=== PATIENT | female | born 1940 | race Caucasian/White ===

== ENCOUNTER 2018-08-11 11:25 | Inpatient (IN) | payer MEDICARE, SELFPAY ==
[2018-08-11] VITALS (15 sets, daily range): BP systolic 141–181; BP diastolic 71–90; PULSE 62–76; RESP 9–19; TEMP 36.5–37.4; O2SAT 88–99; BMI 26.2
--- NOTE | 2018-08-11 | DI.RAD.S_ITS ---
PROCEDURE: XR HIP W PEL IF DONE RT 2V INDICATIONS: RIGHT HIP ORIF TECHNIQUE: 2 views of the hip were acquired. COMPARISON: [facility], CR, XR HIP W PEL IF DONE RT 2V, 08/11/2018, 11:35. FINDINGS: Two intraoperative fluoroscopy images demonstrate open reduction and internal fixation of right femoral neck fracture. 3 surgical screws are noted traversing the femoral neck. IMPRESSION: Open reduction and internal fixation of right femoral neck fracture. Dictated by: Sharon Mohamud M.D. on 08/11/2018 at 21:24 Approved by: Sharon Mohamud M.D. on 08/11/2018 at 21:25
--- NOTE | 2018-08-11 11:33 | DI.RAD.S_ITS ---
PROCEDURE: XR HIP W PEL IF DONE RT 2V INDICATIONS: fall with hip pain TECHNIQUE: 2 views of the hip were acquired. COMPARISON: None. FINDINGS: Bones: There is a mildly impacted subcapital/femoral neck fracture involving the right proximal femur without significant displacement. There is no dislocation. No additional fractures are seen. The bone mineralization is within normal limits. Mild to moderate degenerative changes of the pelvic joints are noted, including the lower lumbar spine. Soft tissues: No suspicious soft tissue calcifications or masses. Scattered vascular calcifications are present. IMPRESSION: Nondisplaced subcapital/femoral neck fracture of the proximal right femur. Dictated by: Homar Chavira M.D. on 08/11/2018 at 10:58 Approved by: Homar Chavira M.D. on 08/11/2018 at 10:59
[2018-08-11] MEDS: TET,DIPH,PERTUSS(ACELL),VAC/PF 0.5 ML SYRINGE IM (11:56)
--- NOTE | 2018-08-11 12:11 | ED_ITS ---
HPI - Animal Bite General Chief Complaint: Animal Bite Stated Complaint: RT LEG PAIN FROM FALL, DOG BITE Time Seen by Provider: 08/11/18 11:28 Source: patient Mode of arrival: ambulatory Limitations: no limitations History of Present Illness HPI narrative: 78-year-old pleasantly confused female presents with significant other in the chief complaint of a provoked dog bite to her left thigh and fall onto her right hip resulting in significant pain, particularly with range of motion or ambulation. She denies any head neck injury. She denies any chest pain or shortness of breath. She denies any dizziness, weakness or lightheadedness. Her tetanus is not current. She states it was her dog and jumped up and nipped at her leg when it was abruptly a woken from sleep when she thinks she tripped on it. She last ate 1-2 hours prior to her arrival, a spoonful of peanut butter. Her dog has been fully vaccinated complaint: animal bite Onset (ago): hour(s) Animal: dog Mechanism: bite Left: thigh Pain description: sharp Context: provoked Related Data Patient tetanus UTD: No Home Medications Medication Instructions Recorded Confirmed No Known Home Medications 08/11/18 08/11/18 Allergies Allergy/AdvReac Type Severity Reaction Status Date / Time No Known Drug Allergies Allergy Verified 08/11/18 12:11 Review of Systems Review of Systems All systems reviewed & are unremarkable except as noted in HPI and below Constitutional Denies chills, Denies fever(s), Denies lethargy and Denies weakness Eyes Denies change in vision, Denies eye discharge, Denies irritation and Denies loss of vision ENT Ears, Nose, Mouth, and Throat: Denies change in voice, Denies neck pain and Denies sore throat Cardiovascular Denies chest pain, Denies irregular heart rhythm, Denies lightheadedness, Denies palpitations, Denies dyspnea, Denies dyspnea on exertion and Denies orthopnea Respiratory Denies cough, Denies dyspnea, Denies dyspnea on exertion and Denies wheezing Gastrointestinal Gastrointestinal: Denies abdominal pain, Denies change in bowel habits, Denies diarrhea, Denies nausea and Denies vomiting Genitourinary Denies hematuria, Denies flank pain, Denies urinary incontinence and Denies urinary urgency Musculoskeletal Reports limited range of motion and Denies neck pain Integumentary/Breasts Denies pruritus, Denies erythema, Denies rash and Denies wounds Neurologic Denies confusion, Denies loss of vision and Denies weakness Psychiatric Denies anxiety, Denies confusion, Denies depression, Denies homicidal ideation and Denies suicidal ideation Endocrine Denies palpitations Hematologic/Lymphatic Denies easy bruising Allergic/Immunologic Denies wheezing Exam Narrative Exam Narrative: 78-year-old female, pleasantly confused but obviously uncomfortable, complaining of right hip pain Initial Vital Signs Initial Vital Signs: Vital Signs Temperature 98.0 F 08/11/18 11:40 Pulse Rate 66 08/11/18 11:40 Respiratory Rate 18 08/11/18 11:40 Blood Pressure 168/73 H 08/11/18 11:40 Pulse Oximetry 94 08/11/18 11:40 Const General: cooperative, well developed and acute distress Nutritional Appearance: well nourished Orientation: alert, awake, oriented x3 and confused HENMT Head: normocephalic and atraumatic Ears: external ears normal and TM's normal bilaterally Nose: external nose normal and No nasal discharge Face and sinus: sinuses nontender, face symmetric, no sinus tenderness and No dry mucous membranes Mouth: oral mucosae normal and moist mucous membranes Teeth and gingiva: dentition normal Throat: tonsils normal and uvula midline Eyes General: appearance normal, both eyes and all related structures Eyelids: eyelids normal Conjunctivae: conjunctivae normal Sclera: sclerae normal Pupils: PERRL EOM: EOM intact bilaterally Chest Chest: normal inspection of the chest Cardio Rate: regular rate Rhythm: regular rhythm Heart Sounds: no click, no gallops, no murmurs and no rubs Pulses: normal peripheral pulses Back/Spine/Pelvis Back: No CVA tenderness Cervical Spine: cervical ROM normal and No pain with cervical ROM Thoracic/Lumbar Spine: thoracic and lumbar spine normal to inspection Skin General: no rashes or lesions noted, No jaundice and No petechiae Neuro General: alert, oriented x3, gait normal and no focal motor deficits Speech: speech normal Extrem General: full ROM, no clubbing, cyanosis or edema, no pedal edema and no calf tenderness Right lower extremity: hip/thigh (Pain to palpation, nor shortening or external rotation. Cap refill less than 2 sec, sensation intact) Course Orders Ordered: ED Orders 08/11/18 11:33 XR hip w pel if done RT 2V Stat 08/11/18 12:35 Basic Metabolic Panel Stat Complete Blood Count AUTO DIFF Stat 08/11/18 12:47 Education, smoking cessation ONGOING 08/11/18 12:51 Consult to Discharge Planning Routine Consult to Occupational Therapy Evaluate & Treat Consult to Physical Therapy Evaluate & Treat Consult to Free Lance Model Routine Al Hydrox/Mg Hydrox/Simethicone (Maalox Plus) 30 ml PO Q6HR PRN PRN Reason: Dyspepsia Calcium Carbonate (Tums) 1,000 mg PO Q4HR PRN PRN Reason: Dyspepsia Hydromorphone HCl (Dilaudid) 1 mg IV Q6HR PRN PRN Reason: Pain, Severe (7-10) Last Admin: 08/11/18 13:04 Dose: 1 mg Sodium Chloride (Normal Saline 0.9%) 1,000 mls @ 80 mls/hr IV CONT TRICIA Last Infusion: 08/11/18 13:40 Dose: 80 mls/hr Admin: 08/11/18 13:05 Dose: 80 mls/hr Ondansetron HCl (Zofran) 4 mg IV Q8HR PRN PRN Reason: Nausea And Vomiting Last Admin: 08/11/18 13:04 Dose: 4 mg Oxycodone HCl (Percolone) 5 mg PO Q6HR PRN PRN Reason: Pain, Moderate (4-6) Promethazine HCl (Phenadoz) 12.5 mg MA Q6HR PRN PRN Reason: Nausea And Vomiting Discontinued Medications Diphtheria/Tetanus/Acell Pertussis (Adacel) 0.5 ml IM .ONCE ONE Stop: 08/11/18 11:34 Last Admin: 08/11/18 11:56 Dose: 0.5 ml Consultations Consultation #1: Initial call to Orthopedics who recommend admission to the hospitalist and will coordinate with hospitalist regarding likely surgery Consultation #2: Hospitalist happy to accept this patient Vital Signs - 8 hr 08/11/18 11:40 08/11/18 13:05 08/11/18 13:21 Temperature 98.0 F Pulse Rate 66 68 76 Respiratory Rate 18 16 12 Blood Pressure 168/73 H Blood Pressure [Left Arm] 181/71 H 181/71 H Pulse Oximetry 94 94 88 L MDM - Animal Bite Lab Data Result diagrams: 08/11/18 12:35 08/11/18 12:35 Lab Results 08/11/18 08/11/18 Range/Units 12:35 12:35 WBC 15.0 H (4.5-11.0) X10^3/uL RBC 5.34 H (4.0-5.2) X10^6/uL Hgb 15.5 (12.0-16.0) g/dL Hct 46.8 H (36-46) % MCV 87.6 (80-100) fL MCH 29.1 (26-34) PG MCHC 33.2 (30-36) % RDW 14.1 (11.6-14.8) % Plt Count 250 (150-400) X10^3/uL Neut % (Auto) 85.6 H (50-75) % Lymph % (Auto) 7.2 L (25-40) % [place] % (Auto) 6.2 (3-14) % Eos % (Auto) 0.5 L (2-4) % Baso % (Auto) 0.5 (0-2) % Neut # (Auto) 29718 H (0846-0174) /uL Sodium 143 (137-145) mmol/L Potassium 4.8 (3.4-5.1) mmol/L Chloride 99 (98-107) mmol/L Carbon Dioxide 32 (22-32) mmol/L BUN 19 H (7-17) mg/dL Creatinine 0.70 (0.52-1.04) mg/dL Estimated GFR > 60.0 (>60) mL/min BUN/Creatinine Ratio 27.1 H (6-22) Glucose 111 H (80-110) mg/dL Calcium 10.8 H (8.4-10.2) mg/dL Phosphorus 3.3 (2.8-4.1) mg/dL Magnesium 1.8 (1.6-2.3) mg/dL Discharge Plan Departure Patient Disposition: Admitted As Inpatient Clinical Impression: Closed hip fracture Discharge Date/Time: 08/11/18 13:33 Interventions: ED Discharge Assessment Last Done: 08/11/18 13:32 Admit Date/Time: 08/11/18 12:33 Admit Provider: Brenda Caruso
[2018-08-11 12:43] LABS: Add Manual Diff / Slide Review NO; Basophils Percent Auto 0.5 % (0-2); Eosinophils Percent Auto 0.5 % (2-4); Hematocrit 46.8 % (36-46); Hemoglobin 15.5 g/dL (12.0-16.0); Lymphocytes Percent Auto 7.2 % (25-40); Mean Corpuscular HGB Conc 33.2 % (30-36); Mean Corpuscular Hemoglobin 29.1 PG (26-34); Mean Corpuscular Volume 87.6 fL (80-100); Monocytes Percent Auto 6.2 % (3-14); Neutrophils Absolute Auto 12800 /uL (3000-5900); Neutrophils Percent Auto 85.6 % (50-75); Platelet Count 250 X10^3/uL (150-400); Red Blood Cell Count 5.34 X10^6/uL (4.0-5.2); Red Cell Distribution Width 14.1 % (11.6-14.8)
[2018-08-11 13:01] LABS: BUN Creatinine Ratio 27.1 (6-22); Blood Urea Nitrogen 19 mg/dL (7-17); Calcium 10.8 mg/dL (8.4-10.2); Carbon Dioxide 32 mmol/L (22-32); Chloride 99 mmol/L (98-107); Estimated Glomerular Filt Rate > 60.0 mL/min (>60); Glucose 111 mg/dL (80-110); HEMOLYSIS < 15 (0-50); Potassium 4.8 mmol/L (3.4-5.1); Sodium 143 mmol/L (137-145)
[2018-08-11] MEDS: HYDROMORPHONE 1 MG INJ IV (13:04)
[2018-08-11] MEDS: ONDANSETRON 4 MG/2 ML INJ IV (13:04)
[2018-08-11] MEDS: SODIUM CHLORIDE 0.9% 1,000 ML 80 ML IV ×2 (13:05→17:22)
[2018-08-11 13:18] LABS: Magnesium 1.8 mg/dL (1.6-2.3); Phosphorous 3.3 mg/dL (2.8-4.1)
--- NOTE | 2018-08-11 13:39 | PT.IPTN ---
Surgery Performed Operation Date: 08/11/18 16:00 <No data on this case meets the specified criteria> Physical Therapy Treatment Note M3 PT-IP Subjective Start: 08/11/18 13:29 Freq: NEEDED Status: Active Protocol: Document 08/11/18 13:38 RS (Rec: 08/11/18 13:39 RS [id number]) Subjective Physical Therapy Visit Type Type Administrative Note Notes Pt just arrived to acute floor from ED with R hip fx. Pt is awaiting ortho consult. Will hold PT until a plan is made.
--- NOTE | 2018-08-11 15:35 | P.CONS_ITS ---
History of Present Illness Date Patient Seen: 08/11/18 Time Patient Seen: 15:25 Chief complaint: RT LEG PAIN FROM FALL, DOG BITE Reason for consult: Right hip pain Requesting provider: Geraldo Mejia Narrative: Patient is a 78-year-old woman who was interacting with the dog when the dog bit her. Somehow during this tarsal she fell and injured her right hip. She was unable to walk well afterwards and was seen in the emergency room at [facility] where radiographs revealed an impacted minimally displaced femoral neck fracture. Orthopedic consultation has been obtained for definitive management of the fracture. Meds Home Medications Medication Instructions Recorded Confirmed Type No Known Home Medications 08/11/18 08/11/18 History Allergies Allergy/AdvReac Type Severity Reaction Status Date / Time No Known Drug Allergies Allergy Verified 08/11/18 12:11 Review of Systems Review of Systems All systems reviewed & are unremarkable except as noted in HPI and below Exam Vital Signs (past 8 hours): - 08/11/18 11:40 08/11/18 13:05 08/11/18 13:15 Temperature 98.0 F 98.5 F Pulse Rate 66 68 76 Respiratory Rate 18 16 18 Blood Pressure 168/73 H 176/90 H Blood Pressure [Left Arm] 181/71 H Pulse Oximetry 94 94 98 08/11/18 13:21 Temperature Pulse Rate 76 Respiratory Rate 12 Blood Pressure Blood Pressure [Left Arm] 181/71 H Pulse Oximetry 88 L Oxygen Delivery Method Nasal Cannula Oxygen Flow Rate 2 Narrative Exam Narrative: Patient is lying comfortably in bed as long she does not move. The right hip is held in a slightly flexed position. It is tender over the greater trochanter. There is no ecchymosis there is no break in the skin. She has a soft calf. Light touch and motion are intact in the right lower extremity. Objective Labs Result Diagrams: 08/11/18 12:35 08/11/18 12:35 Labs: Laboratory Results - last 24 hr 08/11/18 08/11/18 12:35 12:35 WBC 15.0 H RBC 5.34 H Hgb 15.5 Hct 46.8 H MCV 87.6 MCH 29.1 MCHC 33.2 RDW 14.1 Plt Count 250 Neut % (Auto) 85.6 H Lymph % (Auto) 7.2 L Brule % (Auto) 6.2 Eos % (Auto) 0.5 L Baso % (Auto) 0.5 Neut # (Auto) 23833 H Sodium 143 Potassium 4.8 Chloride 99 Carbon Dioxide 32 BUN 19 H Creatinine 0.70 Estimated GFR > 60.0 BUN/Creatinine Ratio 27.1 H Glucose 111 H Calcium 10.8 H Phosphorus 3.3 Magnesium 1.8 Radiographs: Radiographs were reviewed. There is an impacted femoral neck fracture of the right femur. Assessment & Plan Plan: Assessment/Plan Narrative: The patient is a relatively healthy 78-year-old woman. She has a remarkably poor historian however. She has a great deal of difficulty recalling when she last ate and recalls her last meal is anything from a couple of tsp of peanut butter to half a Vianey Callendars pot pie. We have arranged for her to undergo percutaneous fixation of her hip fracture however the surgery will be delayed significantly due to the uncertainty regarding when she last ate. This likely will occur now at 7:30 a.m. this evening. She has agreed to surgery after discussion of the risks benefits and alternatives. Risks discussed included but were not limited to: Loss of fixation of the fracture, potential need for later conversion to hemiarthroplasty, infection, nerve damage, deep venous thrombosis, pulmonary embolism, stroke, myocardial infarction, permanent paralysis and . Time Spent With Patient Time with patient: 25 - 35 minutes
--- NOTE | 2018-08-11 15:49 | PC.NURSE ---
Patient arrived to room just before 1400, oriented to room and call light. Gardner in place, draining clear yellow urine. Right hip intact with ice bag in place. Patient states her pain is minimal at this time. Left leg has 4 spots of dried blood, WILIAM, dry and patient states this is where the dog bit her. Dry skin throughout noted which patient reports is chronic condition. Patient denies needs at this time. Call light within reach. Awaiting plan of care.
--- NOTE | 2018-08-11 15:56 | PC.NURSE ---
Patient noted to be 98% on 1.5 L not 88% as previously documented.
[2018-08-11] MEDS: LACTATED RINGERS 1,000 ML 42 ML IV (16:28)
--- NOTE | 2018-08-11 16:37 | P.HP_ITS ---
History of Present Illness Date Patient Seen: 08/11/18 Time Patient Seen: 16:23 Chief complaint: RT LEG PAIN FROM FALL, DOG BITE Narrative: - PATIENT WITH APPARENTLY NO SIGNIFICANT MEDICAL HX AND WITH MILD TO MODERATE DEMENTIA - PATIENT PRESENTED TO THE ED AFTER A FALL TODAY - SHE STATED THAT SOMEONE S DOG BIT HER AND WHILE TRYING TO GET AWAY, SHE FELL - SHE DENIED ANY LOSS OF CONSCIOUSNESS - SHE WAS IN HER USUAL STATE OF HEALTH PRIOR TO THAT - IN THE ED, SHE WAS DX WITH AN ACUTE RT HIP FRACTURE AND REFERRED TO ORTHO AND ADMITTED INTO OUR SERVICES - SHE HAD NO OTHER COMPLAINTS AT THIS TIME EXCEPT FOR PAIN WITH ACTIVE AND PASSIVE MOVEMENT OF THE RT LOWER EXT Patient History Medical History Dementia (Acute) Surgical History Hx laparoscopic cholecystectomy (Acute) Family & Social History Family History: Reviewed 08/11/18 by Brenda Caruso DO Social History: household members children Prior Living Arrangements House Safety & Behavioral: Feels Safe in Current Yes Environment Been Physically Hurt or No Threatened By a Person Suicidal Ideation Description None Suicide Plan Description No Plan Tobacco & Substance use: Smoking Status Former smoker alcohol intake frequency holiday/special occasion Substance Use Type does not use Meds Home Medications Medication Instructions Recorded Confirmed Type No Known Home Medications 08/11/18 08/11/18 History Allergies Allergy/AdvReac Type Severity Reaction Status Date / Time No Known Drug Allergies Allergy Verified 08/11/18 12:11 Review of Systems Review of Systems All systems reviewed & are unremarkable except as noted in HPI and below Exam Vital Signs (past 8 hours): - 08/11/18 11:40 08/11/18 13:05 08/11/18 13:15 Temperature 98.0 F 98.5 F Pulse Rate 66 68 76 Respiratory Rate 18 16 18 Blood Pressure 168/73 H 176/90 H Blood Pressure [Left Arm] 181/71 H Pulse Oximetry 94 94 98 08/11/18 13:21 08/11/18 13:50 Temperature Pulse Rate 76 Respiratory Rate 12 Blood Pressure Blood Pressure [Left Arm] 181/71 H Pulse Oximetry 88 L 98 Oxygen Delivery Method Nasal Cannula Oxygen Flow Rate 1.5 Narrative Exam Narrative: NO ACUTE DISTRESS. PATIENT IS ALERT ORIENTED X 2. VITAL SIGNS STABLE HEAD ATRAUMATIC NORMOCEPHALIC NECK : SUPPLE WITHOUT ADENOPATHY NO CAROTID BRUITS EYE: EOMI, PERRLA, NORMAL CONJUNCTIVA; NO JAUNDICE CHEST: REGULAR RATE. NO RUBS. PMI IS NON DISPLACED. NO MURMURS; NORMAL S1- S2 PULMONARY: DECREASED BS OVER THE BASES. MILD BIBASILAR CRACKLES NOTED; NO INCREASED DULLNESS TO PERCUSSION ABDOMEN: SOFT. NON TENDER. NON DISTENDED. BOWEL SOUNDS ARE PRESENT IN ALL 4 QUADRANTS. NO MASS. EXTREMITIES: NO EDEMA.. NO CYANOSIS CLUBBING NOTED. NEURO: CRANIAL NERVES 2-12 GROSSLY INTACT. NO FOCAL NEUROLOGICAL DEFICIT NOTED. MSK: DISCOMFORT WITH ACTIVE AND PASSIVE ROM ON THE RT LOWER EXT; NO JOINT EFFUSION. SKIN: NORMAL FOR ETHNICITY; NO ECCHYMOSIS. NO LESION. GOOD TURGOR.; NO RASHES : NORMAL EXTERNAL GENITALIA. PSYCH : APPROPRIATE MOOD AND AFFECT. ALERT AWAKE ORIENTED X3 Objective Labs Result Diagrams: 08/11/18 12:35 08/11/18 12:35 Labs: Laboratory Results - last 24 hr 08/11/18 08/11/18 12:35 12:35 WBC 15.0 H RBC 5.34 H Hgb 15.5 Hct 46.8 H MCV 87.6 MCH 29.1 MCHC 33.2 RDW 14.1 Plt Count 250 Neut % (Auto) 85.6 H Lymph % (Auto) 7.2 L [place] % (Auto) 6.2 Eos % (Auto) 0.5 L Baso % (Auto) 0.5 Neut # (Auto) 82216 H Sodium 143 Potassium 4.8 Chloride 99 Carbon Dioxide 32 BUN 19 H Creatinine 0.70 Estimated GFR > 60.0 BUN/Creatinine Ratio 27.1 H Glucose 111 H Calcium 10.8 H Phosphorus 3.3 Magnesium 1.8 Assessment & Plan Plan: Assessment/Plan Narrative: IMPRESSION AND PLAN ACUTE FALL WITH TRAUMA; ACCIDENTAL; GROUND LEVEL ; FALL PRECAUTIONS; PT/OT RT HIP FX; SPOKE TO ORTHO; POSS SURG THIS PM ; PATIENT IS CLEARED FOR PROCEDURE IN MEDICINE STAND POINT; FOLLOW CLOSELY POSTOP FOR S/S OF ACUTE COMPLAICATIONS LEUKOCYTOSIS; LIKELY ACUTE REACTANT; WILL GET UA HOWEVER; REPEAT LABS IN AM; ABX INDICATED POSS MILD DEHYDRATION; IVF FOR NOW; TREAT INDICATED DEMENTIA; APPEARS AT BASELINE; RE-ORIENT INDICATED; KEEP LIGHTS ON AT ALL TIMES; WATCH FOR HOSPITAL PSYCHOSIS; PRN MEDS INDICATED POSS OSTEOPOROSIS ; VIT D AND CA WHILE IN HOUSE; BONE SCAN AND OTHER MEDS OUTPT WHEN INDICATED DURATION OF STAY 2-4 DAYS Time Spent With Patient Time with patient: Greater than 35 minutes Quality VTE Deep Vein Thrombosis/Pulmonary Embolism Present on Admission: No
[2018-08-11 17:48] LABS: Appearance Urine UA CLEAR; Bilirubin Urine UA NEGATIVE (NEGATIVE); Color Urine UA YELLOW; Glucose Urine UA NEGATIVE (Normal); Ketones Urine UA NEGATIVE (NEGATIVE); Leukocyte Esterase Urine UA NEGATIVE (NEGATIVE); Nitrite Urine UA NEGATIVE (Negative); Occult Blood Urine UA TRACE-INTACT (Negative); Protein Urine UA NEGATIVE (Negative); Specific Gravity Urine UA 1.025 (1.000-1.035); Urobilinogen Urine UA 0.2 E.U./dL (0.2); pH Urine UA 5.5 (4.5-8.0)
[2018-08-11 17:58] LABS: Amorphous Sediment Urine 1+; Bacteria Urine Occasional (0-1); Mucus Urine 1+ (Negative); RBC Urine 0-1/HPF (0-5/HPF); Squamous Epithelial Cell Urine 0-1 /HPF; WBC Urine 0-1/HPF (0-5/HPF)
[2018-08-11 17:59] LABS: Culture Indicated Urine Cult Not Indicated
--- NOTE | 2018-08-11 19:08 | PC.NURSE ---
Addendum entered by Adrianna Hennessy R.N. 08/11/18 21:59: 2150 - Patient returned from PACU with nursing staff. Alert and oriented. Dressing to right hip C/D/I. Bed alarm on, call light within reach. Original Note: 1904 - Patient taken to Preop by surgical nurses. Left floor in good condition.
[2018-08-11] MEDS: CEFAZOLIN 1 GM/50 ML FROZ.PIGGY IV (20:10)
--- NOTE | 2018-08-11 20:35 | SUR.OPER ---
Head on pillow. Supine on fracture table with operative leg secured in traction. Other leg secured in padded stirrup. Arms across chest, secured with sheet.
--- NOTE | 2018-08-11 21:15 | PM.OP.1 ---
Operative Date/Time/Diagnoses Date of procedure: 08/11/18 Time of procedure: 21:00 Pre-op diagnosis: Impacted right femoral neck fracture. Post-op diagnosis: same Procedure & Clinicians Procedure: Right hip percutaneous screw fixation Same procedure as scheduled: Yes Indications: The patient is a 78-year-old woman who fell today sustaining an impacted fracture of her right femoral neck. This appeared to be amenable to percutaneous treatment with screws and after discussion the risks benefits and alternative she agreed to proceed. The risks discussed are documented in my consultation note. Surgeon: Arun Melchor Click Yes if Unassisted: Yes Anesthesia Type: General Operative Notes Findings: Impacted femoral neck fracture Closure Type: primary Specimen(s): none sent Implants & Drains: Implants included 3 Synthes 7.3 mm short thread cancellous bone screws. Two were 75 mm in length 1 was 70 mm in length. Two screws were used but not left implanted. Applied: catheter and implant(s) Estimated Blood Loss (mL): 5 Blood products transfused: none Procedure in detail: The patient was seen in the preoperative area where she confirmed the right hip as the operative site and this was marked with my initials. She received preoperative antibiotics with an appropriate 1st generation cephalosporin and was taken to the operating room on her hospital bed. She underwent induction of a general anesthetic and then was moved onto the fracture table. The right leg was placed in the traction leg silvestre although no traction was applied. The left leg was placed in the well leg silvestre and abducted out of the way of the fluoroscopy unit. All pressure points were well padded. The position of the fracture was confirmed on the AP and lateral views with fluoroscopy. A livestock speculator-out was performed. The lateral aspect of the right thigh was prepared with ChloraPrep in the usual fashion and she was draped with a vertical adherent drape. The axis of the femoral neck was marked on her anterior thigh using a guide pin and the fluoroscopy to show the top and bottom of the femoral neck. Three guide pins were then placed in parallel on the AP and lateral views across the femoral neck fracture with 2 being superior and 1 inferior. These were measured and 5 mm subtracted from their length to prevent penetration into the joint. At initially I placed a long threaded cancellous screw but it was evident that this had the threads crossing the fracture line so this was removed and all 3 of the screws that were implanted were then short-threaded screws. After implanting the screws over the wires I viewed the position of the screw tips in 15 degree increments from the AP to the lateral view. It became evident that the inferior screw penetrated the femoral head on 1 of the oblique views. This screw was then removed and a guidewire replaced slightly superior to avoid penetration of the inferior femoral head. When I remeasured this screw it needed to be 5 mm longer so a new screw was placed. We then repeated the exercise of checking the screw tips in 15 degree increments and saw that none of them were penetrating the femoral head. The wounds were then closed with 4 0 Maxon and Steri-Strips. A dressing of sterile 4x4s and adhesive dressings were applied. Patient was then transferred to the recovery room in good condition having tolerated the procedure well. Complications: none Condition: stable Disposition: PACU Plan for aftercare: The patient will be allowed to weightbear as tolerated. She will be discharged when she is stable for her home environment. It is possible she may require transfer to a longterm facility depending on her progress with physical therapy.
[2018-08-11] MEDS: ALBUTEROL 2.5 MG/3 ML NEB (ADULT) INH (21:19)
[2018-08-11] MEDS: fentaNYL 100 MCG/2 ML INJ 50 MCG IV (21:26)
--- NOTE | 2018-08-11 21:28 | SUR.PHASEI ---
Pt declined to rate pain by pain scale. Reported pain in her rt hip. Ice applied. Pt medicatedl
--- NOTE | 2018-08-11 21:43 | SUR.PHASEI ---
Report called to Manisha
--- NOTE | 2018-08-11 22:10 | SUR.PHASEI ---
Pt transferred to the floor on 2L O2. Report to Manisha. RT hip drsg cdi. IV patent. VS stable. O2 sat 80s on RA. 7% 2lnc.
[2018-08-11] MEDS: LACTATED RINGERS 1,000 ML 125 ML IV (22:19)
[2018-08-11] MEDS: OXYCODONE IR 5 MG TABLET PO (22:20)
[2018-08-12] VITALS (13 sets, daily range): BP systolic 127–166; BP diastolic 58–90; PULSE 64–98; RESP 16–18; TEMP 36.5–37.2; O2SAT 90–98
--- NOTE | 2018-08-12 | DI.CT.S_ITS ---
PROCEDURE: CT CHEST WO CON INDICATIONS: poss pulm mass vs nodule on cxr; TECHNIQUE: Noncontrast 5 mm thick sections acquired from the pulmonary apices to the posterior costophrenic angles. 7 mm thick coronal and sagittal MIP reformats were then acquired. For radiation dose reduction, the following was used: automated exposure control, adjustment of mA and/or kV according to patient size. COMPARISON: [facility], , XR CHEST 1V, 08/12/2018, 12:53. [facility], , CHEST 2 VIEW, 06/07/2010, 14:42. FINDINGS: Image quality: Diagnostic. Lungs and pleura: Diffuse centrilobular emphysematous changes are identified within the lungs, which is more prominent involving the lung apices. No focal consolidation, effusion, or pneumothorax is identified. The abnormality noted on the recent chest radiograph correlates with a complex nodule, which is pleural-based that measures up to approximately 1.5 x 1.9 cm and may contain a small amount of air versus adjacent emphysematous changes (image 18, series 2). No definite additional nodules within the left lung are identified. However, there is a solid nodule evident within the upper aspect of the right lower lobe, which measures approximately 1.4 x 1.6 cm (image 29, series 2). No definite additional right-sided pulmonary nodules are appreciated. However, there appears to be mild scarring within the bilateral posterior costophrenic angles. Mediastinum: The heart is normal in size without a pericardial effusion. Coronary artery atherosclerosis is noted. There is also thoracic aorta atherosclerosis with aneurysmal dilatation of the ascending thoracic aorta, measuring up to 4.3 cm in AP dimension (image 31, series 2). Neural thrombus within it the descending thoracic aorta is identified with an additional saccular aneurysms evident along the inferior aspect of the lower thoracic aorta, which is not well characterized. A chronic dissection within this region could potentially be present. This aneurysm sac measures approximately 4.3 x 3.0 cm. No mediastinal mass is evident. There is no mediastinal or hilar adenopathy. The esophagus is grossly unremarkable. There is a small hiatal hernia. Bones and chest wall: No suspicious bony lesions. No vertebral body compression fractures. Age-appropriate degenerative changes of the mid spine are present. No axillary or supraclavicular adenopathy by size criteria. Thyroid gland is heterogeneous, but not adequately characterized on this study. Abdomen: Visualized upper abdominal solid organs and bowel loops appear normal in the absence of contrast. IMPRESSION: 1. Left upper lobe and right lower lobe pulmonary nodules are suspicious for pulmonary neoplasm versus less likely atypical infection. PET/CT is recommended for further evaluation. 2. No lymphadenopathy within the chest. 3. Severe aortic atherosclerosis with an ascending thoracic aortic aneurysm and extensive mural thrombus. An additional saccular aneurysm arising from the inferior aspect of the descending thoracic aorta may represent sequela from a chronic dissection. A CT angiogram of the thoracic and abdominal aorta is recommended for further evaluation. 4. Coronary artery atherosclerosis. 5. Centrilobular emphysematous changes of the lungs without a definite acute cardiopulmonary process evident. 6. Small hiatal hernia. Dictated by: Homar Chavira M.D. on 08/12/2018 at 16:00 Approved by: Homar Chavira M.D. on 08/12/2018 at 16:08
--- NOTE | 2018-08-12 | DI.RAD.S_ITS ---
PROCEDURE: XR CHEST 1V INDICATIONS: DEC OXY SAT TECHNIQUE: One view of the chest was acquired. COMPARISON: [facility], , CHEST 2 VIEW, 06/07/2010, 14:42. FINDINGS: Surgical changes and devices: None. Lungs and pleura: No pleural effusions or pneumothorax. Upper lobe centrilobular emphysema seen. There is 1.7 cm spiculated appearing nodular opacity projecting in left upper lobe, which warrants further evaluation with chest CT. This finding appears new. Mediastinum: Mediastinal contours appear normal. Heart size is normal. Bones and chest wall: No suspicious bony lesions. Overlying soft tissues appear unremarkable. IMPRESSION: New spiculated 1.7 cm left upper lobe nodular opacity worrisome for pulmonary nodule. Recommend further evaluation with noncontrast chest CT. Findings are personally telephoned and discussed with , the attending physician, 08/12/18 at 1611 hours. No acute consolidation. Scattered subsegmental atelectasis and/or scarring Dictated by: Jose Ortega M.D. on 08/12/2018 at 15:51 Approved by: Jose Ortega M.D. on 08/12/2018 at 16:12
[2018-08-12] MEDS: OXYCODONE IR 5 MG TABLET PO (04:23)
[2018-08-12] MEDS: CEFAZOLIN 1 GM/50 ML FROZ.PIGGY IV ×3 (04:25→21:30)
[2018-08-12 06:01] LABS: Hematocrit 39.5 % (36-46)
--- NOTE | 2018-08-12 06:40 | PC.NURSE ---
08/12 0640, pt frequently forgetful but easily reoriented. VSS with 2L NC throughout the night. Pt desats to 89-90% on RA while asleep. Pt complained of some pain, prn analgesic administered per order, with stated relief and ability to sleep. dressing c/d/i, CMS intact. Gardner draining to gravity, pt has not been out of bed this shift.
[2018-08-12] MEDS: LACTATED RINGERS 1,000 ML 125 ML IV (06:59)
--- NOTE | 2018-08-12 07:52 | P.PN_ITS ---
Subjective Date Patient Seen: 08/12/18 Time Patient Seen: 07:50 Interval history: The patient reports that her right hip is ?sore?. Exam Vital Signs (past 8 hours): - 08/12/18 00:15 08/12/18 00:27 08/12/18 04:34 Temperature 97.9 F 98.0 F Pulse Rate 74 69 Respiratory Rate 18 18 Blood Pressure 165/79 H 127/78 Pulse Oximetry 98 98 97 Oxygen Delivery Method Nasal Cannula Oxygen Flow Rate 2 Narrative Exam Narrative: Right hip dressing is intact with a small spot of drainage on the bandage. Calf is soft. Light touch and motion are intact in the right lower extremity. Objective Labs Result Diagrams: 08/12/18 05:20 08/11/18 12:35 Labs: Laboratory Results - last 24 hr 08/11/18 08/11/18 08/11/18 12:35 12:35 16:45 WBC 15.0 H RBC 5.34 H Hgb 15.5 Hct 46.8 H MCV 87.6 MCH 29.1 MCHC 33.2 RDW 14.1 Plt Count 250 Neut % (Auto) 85.6 H Lymph % (Auto) 7.2 L [place] % (Auto) 6.2 Eos % (Auto) 0.5 L Baso % (Auto) 0.5 Neut # (Auto) 67103 H Sodium 143 Potassium 4.8 Chloride 99 Carbon Dioxide 32 BUN 19 H Creatinine 0.70 Estimated GFR > 60.0 BUN/Creatinine Ratio 27.1 H Glucose 111 H Calcium 10.8 H Phosphorus 3.3 Magnesium 1.8 Urine Color Yellow Urine Appearance Clear Urine pH 5.5 Ur Specific [place] 1.025 Urine Protein Negative Urine Glucose (UA) Negative Urine Ketones Negative Urine Occult Blood Trace-intact Urine Nitrate Negative Urine Bilirubin Negative Urine Urobilinogen 0.2 Ur Leukocyte Esterase Negative Urine RBC 0-1/hpf Urine WBC 0-1/hpf Ur Squamous Epith Cells 0-1 /hpf Amorphous Sediment 1+ Urine Bacteria Occasional (0-1) Urine Mucus 1+ H Ur Culture Indicated? Cult not indicated Micro UA Comment Not Reportable 08/12/18 05:20 WBC RBC Hgb 13.0 Hct 39.5 MCV MCH MCHC RDW Plt Count Neut % (Auto) Lymph % (Auto) [place] % (Auto) Eos % (Auto) Baso % (Auto) Neut # (Auto) Sodium Potassium Chloride Carbon Dioxide BUN Creatinine Estimated GFR BUN/Creatinine Ratio Glucose Calcium Phosphorus Magnesium Urine Color Urine Appearance Urine pH Ur Specific [place] Urine Protein Urine Glucose (UA) Urine Ketones Urine Occult Blood Urine Nitrate Urine Bilirubin Urine Urobilinogen Ur Leukocyte Esterase Urine RBC Urine WBC Ur Squamous Epith Cells Amorphous Sediment Urine Bacteria Urine Mucus Ur Culture Indicated? Micro UA Comment Assessment & Plan Post-op Postoperative Procedures Operation Date: 08/11/18 16:00 Actual Procedures Side Surgeon p ORIF Hip/Cannulated Screws Right Arun Melchor MD Postoperative day: 1 Postoperative status: doing well Postoperative status narrative: The patient is stable postoperative day 1 after percutaneous pin fixation for a right femoral neck fracture. She may weightbear as tolerated. Discharge disposition will be determined based on her progress in physical therapy. Postoperative plan: routine post-op care and ambulate Postoperative plan narrative: Initiate physical therapy. Depending on her progress in therapy she will either be discharged home or potentially to a longterm facility. Time Spent With Patient less than 15 minutes Quality VTE Deep Vein Thrombosis/Pulmonary Embolism Present on Admission: No
[2018-08-12] MEDS: ACETAMINOPHEN 325 MG TABLET 975 MG PO ×2 (09:08→14:55)
[2018-08-12] MEDS: CALCIUM CARB/VIT D3 500/200 TABLET 1 EACH PO (09:09)
[2018-08-12] MEDS: ENOXAPARIN 40 MG/0.4 ML SYRINGE SUBCUT (09:09)
[2018-08-12] MEDS: AZITHROMYCIN 250 MG TABLET 500 MG PO (09:12)
--- NOTE | 2018-08-12 09:37 | PT.IIE ---
Current Diagnoses Unspecified intracapsular fracture of right femur, initial encounter for closed fracture (08/11/18) Surgery Performed Operation Date: 08/11/18 16:00 Actual Procedures p ORIF Hip/Cannulated Screws(Right) - Arun Melchor MD Surgical History (Last Reviewed 08/11/18 @ 16:28 by Brenda Caruso DO) Hx laparoscopic cholecystectomy (Acute) Medical History (Last Updated 08/11/18 @ 16:27 by Brenda Caruso DO) Dementia (Acute) Physical Therapy Inpatient Evaluation/Re-Eval M1 PT/OT-IP Prior Functional Status Start: 08/11/18 13:29 Freq: NEEDED Status: Active Protocol: Document 08/12/18 09:37 AB (Rec: 08/12/18 13:21 AB [id number]) Medical Review Prior Functional Status Medical History Reviewed Yes Communication able to make needs known Mobility and Gait pt stated that she is independent with all mobilities and ambulation without AD Social History Household Members children Living Arrangements House Number of Floors (Floors) One Floor Number of Stairs To Enter/Railing? 4 steps to enter without rails Home Environment Standard Height Toilet Walk in Shower Home Equipment Four Wheel Walker Additional Social History Comment stated that her son maybe able to assist her but she is not sure has a sink next to the toilet to assist her to get up from the toilet stated that she does not have running water in her bathroom and she goes to her grandson's mother's house to shower. M2 PT-IP Current Condition Start: 08/11/18 13:29 Freq: NEEDED Status: Active Protocol: Document 08/12/18 09:37 AB (Rec: 08/12/18 13:21 AB [id number]) Physical Therapy Current Condition Current Condition Evaluation Date 08/12/18 Treatment Diagnosis R supcapital/ femoral neck fx s/p pecutaneous screw fixation ; diff. in walk Onset Date 08/11/18 Weight Bearing Status Weight Bearing Status Weight Bear as Tolerated M3 PT-IP Subjective Start: 08/11/18 13:29 Freq: NEEDED Status: Active Protocol: Document 08/12/18 09:37 AB (Rec: 08/12/18 13:21 AB [id number]) Subjective Physical Therapy Visit Type Type Initial Evaluation Visit Start Time 09:37 Visit Stop Time 10:14 Total Visit Minutes 37 Number of RETAIL ACCOUNT EXECUTIVE Visits 0 Physical Therapy Visit Comments Patient Comments i am stubborn Therapy Pain Assessment Pain When Pain Assessed At Rest Pain Present Pain Present Pain Reported Location Right Hip Scale Used stated hip is sore but unable to give pain scale Pain Management Techniques Timing of Activity with Medications M4 PT-IP Mobility and Gait Start: 08/11/18 13:29 Freq: NEEDED Status: Active Protocol: Document 08/12/18 09:37 AB (Rec: 08/12/18 13:21 AB [id number]) PT-Bed Mobility Assessment Supine to Sit Supine to Sit Standby Assistance Scooting Scooting to Edge of Bed Standby Assistance PT-Transfer Assessment Sit to and From Stand Sit to and from Stand Minimal Assistance 1 Person Assistance Use of Upper Extremities Equipment Transfer Assistive Device Gait Belt Front Wheeled Walker Orthotic/Prosthetic Devices or Brace: No Transfers Transfer Destination Chair Transfer Technique Stand Step Pivot Transfer Ability Level of Assist Contact Guard Assistance Minimal Assistance 1 Person Assistance Use of Upper Extremities Comments Mobility Comments pt used LLE and BUE to assist RLE to mobilize in bed. Gait Assessment Gait Gait Assistance Required: Contact Guard Assist Minimum Assistance Distance (Feet) 12 Able to Maintain Weight Bearing Status Yes During Gait Assistive Devices Assistive Device Gait Belt Front Wheeled Walker Orthotic/Prosthetic Devices or Brace: No Gait Deviations General Gait Pattern Antalgic Decreased Stride Length Decreased Feet Clearance Factors Limiting Gait Function Factors Limiting Gait Function Decreased Activity Tolerance Decreased Strength Limited Range of Motion Pain Poor Balance Poor Safety Awareness Comments Gait Comments pt requires increase time to complete all tasks. PT-Balance Assessment Sitting Balance and Reactions Static Sitting Balance Ability Good Dynamic Sitting Balance Ability Good Standing Balance and Reactions Static Standing Balance Ability Fair Dynamic Standing Balance Ability Fair Device Used FWW M5 PT-IP Objective Assessments Start: 08/11/18 13:29 Freq: NEEDED Status: Active Protocol: Document 08/12/18 09:37 AB (Rec: 08/12/18 13:21 AB [id number]) Orientation Orientation/Cognition Level of Alertness Alert Orientation Name Place Situation Safety Awareness Decreased Safety Awareness Memory Description Short Term Impaired Group Home Impaired Gross Range of Motion Lower Extremity ROM Assessment Within Functional Limits Strength Lower Extremity Strength Assessment Right Impaired Hip 3-/5 Knee 3-/5 Sensation Assessment Sensation Gross Sensation WNL M6 PT-IP Treatment Start: 08/11/18 13:29 Freq: NEEDED Status: Active Protocol: Document 08/12/18 09:37 AB (Rec: 08/12/18 13:21 AB [id number]) Physical Therapy Treatment Education Education Provided Weight Bearing Status Safety M7 PT-IP Assessment and Plan Start: 08/11/18 13:29 Freq: NEEDED Status: Active Protocol: Document 08/12/18 09:37 AB (Rec: 08/12/18 13:21 AB [id number]) PT Summary Assessment and Plan Potential Rehabilitation Potential Good Status of Condition at Evaluation Stable Summary Impairments Pain ROM Strength Balance Coordination Sensation Tone Cognition Bed Mobility Transfers Gait Activity Tolerance Assessment Summary pt requiring CGA to min A with transfers and ambulation with FWW. d/c plan depending on progress and if son will be able to assist pt at home and if able to do stairs safely. will continue to assess. Goals Bed Mobility Goal Independent Transfer Goal Standby Assistance Front Wheeled Walker Four Wheeled Walker Gait Goal Standby Assistance Front Wheel Walker Four Wheel Walker Gait Distance 150 Other Goals up/down 4 steps without rails using AD min A Days to Meet Goals 3 Frequency of Treatment Frequency Of Treatment Twice a Day Treatment Plan Physical Therapy Treatment Plan Bed Mobility Training Transfer Training Gait Training Therapeutic Exercise Balance Retraining Post Op Education Discharge Planning Hot or Cold Pack Neuromuscular Re-ed Coordination Retraining Manual Therapy Other Recommendations and Next Treatment ambulation Focus Recommendations To Nursing Amount of Assist Needed 1 Person Assist Discharge Recommendations PT Discharge Recommendations Home with 24/7 Assist SNF Rehab Outpatient PT Other Discharge Recommendations SNF vs home with 24/7 and outpt PT Equipment Needed for Home Before FWW Discharge
[2018-08-12] MEDS: FUROSEMIDE 20 MG/2 ML VIAL IV (11:12)
--- NOTE | 2018-08-12 12:04 | P.PN_ITS ---
Subjective Date Patient Seen: 08/12/18 Time Patient Seen: 10:38 Interval history: PAIN IS WELL CONTROLLED POST OP NO FEVER OR CHILLS WILL START WORKING WITH PT/OT TODAY NO SIGNIFICANT ISSUES OVERNIGHT OK WITH DC TO SNF Exam Vital Signs (past 8 hours): - 08/12/18 04:34 08/12/18 07:25 08/12/18 08:46 Temperature 98.0 F 98.5 F Pulse Rate 69 82 Respiratory Rate 18 18 Blood Pressure 127/78 151/76 H Pulse Oximetry 97 90 L 98 08/12/18 09:10 08/12/18 09:11 Temperature Pulse Rate Respiratory Rate Blood Pressure Pulse Oximetry 98 97 Oxygen Delivery Method Room Air Oxygen Flow Rate 2 Narrative Exam Narrative: NO ACUTE DISTRESS. PATIENT IS ALERT ORIENTED X 2. VITAL SIGNS STABLE HEAD ATRAUMATIC NORMOCEPHALIC NECK : SUPPLE WITHOUT ADENOPATHY NO CAROTID BRUITS EYE: EOMI, PERRLA, NORMAL CONJUNCTIVA; NO JAUNDICE CHEST: REGULAR RATE. NO RUBS. PMI IS NON DISPLACED. NO MURMURS; NORMAL S1- S2 PULMONARY: DECREASED BS OVER THE BASES. MILD BIBASILAR CRACKLES NOTED; NO INCREASED DULLNESS TO PERCUSSION ABDOMEN: SOFT. NON TENDER. NON DISTENDED. BOWEL SOUNDS ARE PRESENT IN ALL 4 QUADRANTS. NO MASS. EXTREMITIES: NO EDEMA.. NO CYANOSIS CLUBBING NOTED. NEURO: CRANIAL NERVES 2-12 GROSSLY INTACT. NO FOCAL NEUROLOGICAL DEFICIT NOTED. MSK: DISCOMFORT WITH ACTIVE AND PASSIVE ROM ON THE RT LOWER EXT; NO JOINT EFFUSION. SKIN: NORMAL FOR ETHNICITY; NO ECCHYMOSIS. NO LESION. GOOD TURGOR.; NO RASHES : NORMAL EXTERNAL GENITALIA. PSYCH : APPROPRIATE MOOD AND AFFECT. ALERT AWAKE ORIENTED X3 Objective Labs Result Diagrams: 08/12/18 05:20 08/11/18 12:35 Labs: Laboratory Results - last 24 hr 08/11/18 08/11/18 08/11/18 12:35 12:35 16:45 WBC 15.0 H RBC 5.34 H Hgb 15.5 Hct 46.8 H MCV 87.6 MCH 29.1 MCHC 33.2 RDW 14.1 Plt Count 250 Neut % (Auto) 85.6 H Lymph % (Auto) 7.2 L [place] % (Auto) 6.2 Eos % (Auto) 0.5 L Baso % (Auto) 0.5 Neut # (Auto) 48411 H Sodium 143 Potassium 4.8 Chloride 99 Carbon Dioxide 32 BUN 19 H Creatinine 0.70 Estimated GFR > 60.0 BUN/Creatinine Ratio 27.1 H Glucose 111 H Calcium 10.8 H Phosphorus 3.3 Magnesium 1.8 Urine Color Yellow Urine Appearance Clear Urine pH 5.5 Ur Specific [place] 1.025 Urine Protein Negative Urine Glucose (UA) Negative Urine Ketones Negative Urine Occult Blood Trace-intact Urine Nitrate Negative Urine Bilirubin Negative Urine Urobilinogen 0.2 Ur Leukocyte Esterase Negative Urine RBC 0-1/hpf Urine WBC 0-1/hpf Ur Squamous Epith Cells 0-1 /hpf Amorphous Sediment 1+ Urine Bacteria Occasional (0-1) Urine Mucus 1+ H Ur Culture Indicated? Cult not indicated Micro UA Comment Not Reportable 08/12/18 05:20 WBC RBC Hgb 13.0 Hct 39.5 MCV MCH MCHC RDW Plt Count Neut % (Auto) Lymph % (Auto) [place] % (Auto) Eos % (Auto) Baso % (Auto) Neut # (Auto) Sodium Potassium Chloride Carbon Dioxide BUN Creatinine Estimated GFR BUN/Creatinine Ratio Glucose Calcium Phosphorus Magnesium Urine Color Urine Appearance Urine pH Ur Specific [place] Urine Protein Urine Glucose (UA) Urine Ketones Urine Occult Blood Urine Nitrate Urine Bilirubin Urine Urobilinogen Ur Leukocyte Esterase Urine RBC Urine WBC Ur Squamous Epith Cells Amorphous Sediment Urine Bacteria Urine Mucus Ur Culture Indicated? Micro UA Comment Assessment & Plan Plan: Assessment/Plan Narrative: IMPRESSION AND PLAN ACUTE FALL WITH TRAUMA; ACCIDENTAL; GROUND LEVEL ; FALL PRECAUTIONS; PT/OT S/P HIP FX REPAIN WITH SCREW INSERTIONS; APPEARS IMPROVED CLINICALLY; NO S/S OF ACUTE COMPLICATIONS; SURG TEAM ASSISTANCE IN THIS CASE IS GREATLY APPRECIATED; FOLLOW CLOSELY ; 5 W'S LEUKOCYTOSIS; LIKELY ACUTE REACTANT TO ACUTE FX AND SURG PROCEDURE; UA IS UNREMARKABLE; CXR ORDERED TODAY; DAILY CBC TO FOLLOW; BLOOD CX INDICATED; ABX INDICATED WELL; POSS MILD DEHYDRATION; IVF FOR NOW; TREAT INDICATED DEMENTIA; APPEARS AT BASELINE; RE-ORIENT INDICATED; KEEP LIGHTS ON AT ALL TIMES; WATCH FOR HOSPITAL PSYCHOSIS; PRN MEDS INDICATED POSS OSTEOPOROSIS ; VIT D AND CA WHILE IN HOUSE; BONE SCAN AND OTHER MEDS OUTPT WHEN INDICATED POSS ACUTE ON CHRONIC RESP FAILURE; DEC OXY SAT REPORTED ASND NOTED DURING INTERVIEW; LIKELY DUE TO COPD EXACERBATION; OXYGEN THERAPY TO MAINTAIN PROPER SAT; TELEMETRY; INCENTIVE SPIROMETRY; OOB/ IN CHAIR TID; POSS ACUTE COPD EXACERB; ON STEROIDS; AZITHRO ADDED; RT CONSULTED; DUONEBS ORDERED WELL; EVALUATE FOR HOME OXYGEN; SERIAL CXR AND ABG TO FOLLOW INDICATED; CONT PULSE OX Quality VTE Deep Vein Thrombosis/Pulmonary Embolism Present on Admission: No
--- NOTE | 2018-08-12 13:01 | CM.DANOTE ---
Discharge Planning/Care Management DCP: assessment: case received, EMR reviewed and met with pt. Introduced self and role. Pt is a 78 year old female who admitted yesterday afternoon to care of hospitalist team. Pt taken to surgery yesterday to repair fractured hip/Rt. Surgeon: Dr. Melchor. Payer: Medicare. No supplement identified. Admission status: INPT: confirmed by UR RYAN Flores. OT and PT are ordered. No notes are yet available for review. RT is seeing pt and, in Team Rounds, requests chest x-ray from the physician. RYAN Cartwright note pt is on IV antibiotics for dog bite wound. Asked pt about the dog bite event. She says it was quite a surprise as I know that dog well, it's usually very friendly. P: assured pt that dc planning team would be following to help with d/c issues and options. If snf stay indicated pt is well covered under her Medicare for a short snf stay under the rehab benefit. CM Discharge Assessment Start: 08/12/18 12:58 Freq: Status: Active Protocol: Document 08/12/18 12:58 ITV (Rec: 08/12/18 13:01 ITV [id number]) Discharge Planning Assessment Advance Directives? No History Provided By Patient Medical Record Prior Living Arrangements House Household Members children Comment pt reports, I own the home. My son Bill lives with me. Is patient alert and oriented? seems to be at time of this meeting. ER and hospitalist H& P say: dementia d Whiteboard Updated in Patient Room with Yes name and ext. # of Loss Prevention/Safety District Manager Review Status In Process Next Review Type Continued Stay Review
--- NOTE | 2018-08-12 13:48 | OT.IP.EVAL ---
Current Diagnoses Unspecified intracapsular fracture of right femur, initial encounter for closed fracture (08/11/18) Surgery Performed Operation Date: 08/11/18 16:00 Actual Procedures p ORIF Hip/Cannulated Screws(Right) - Arun Melchor MD Past Medical History (Last Updated 08/11/18 @ 16:27 by Brenda Caruso DO) Dementia (Acute) Surgical History (Last Reviewed 08/11/18 @ 16:28 by Brenda Caruso DO) Hx laparoscopic cholecystectomy (Acute) Occupational Therapy Inpatient Evaluation/Re-Eval M1 PT/OT-IP Prior Functional Status Start: 08/11/18 13:29 Freq: NEEDED Status: Active Protocol: Document 08/12/18 09:37 AB (Rec: 08/12/18 13:21 AB [id number]) Medical Review Prior Functional Status Medical History Reviewed Yes Communication able to make needs known Mobility and Gait pt stated that she is independent with all mobilities and ambulation without AD Social History Household Members children Living Arrangements House Number of Floors (Floors) One Floor Number of Stairs To Enter/Railing? 4 steps to enter without rails Home Environment Standard Height Toilet Walk in Shower Home Equipment Four Wheel Walker Additional Social History Comment stated that her son maybe able to assist her but she is not sure has a sink next to the toilet to assist her to get up from the toilet stated that she does not have running water in her bathroom and she goes to her grandson's mother's house to shower. M2 OT-IP Current Condition Start: 08/12/18 13:31 Freq: Status: Active Protocol: Document 08/12/18 13:31 [facility] (Rec: 08/12/18 13:48 [facility] [id number]) Occupational Therapy Current Condition Current Condition Evaluation Date 08/12/18 Treatment Diagnosis Right closed hip fx, s/p percutaneus screw fixation Diagnosis Onset Date 08/11/18 Weight Bearing Status Weight Bearing Status Weight Bear as Tolerated M3 OT- IP Subjective and Pain Start: 08/12/18 13:31 Freq: Status: Active Protocol: Document 08/12/18 13:31 [facility] (Rec: 08/12/18 13:48 [facility] [id number]) OT- Subjective Occupational Therapy Visit Type Type Initial Evaluation Visit Start Time 12:45 Visit Stop Time 13:00 Total Visit Minutes 30 Notes Also seen from 1310 to 1325. Occupational Therapy Visit Comments Patient/Caregiver Goals Pt wanting to go home when medically stable. OT Pain Assessment Pain When Pain Assessed During Mobility Pain Present Pain Present Pain Reported Location Right Hip Intensity 5 Scale Used Numeric (1 - 10) Description Aching M4 OT- IP ADL's Start: 08/12/18 13:31 Freq: Status: Active Protocol: Document 08/12/18 13:31 [facility] (Rec: 08/12/18 13:48 [facility] [id number]) OT ADL-Dressing General Eval Lower Body Dressing Ability Maximum Assistance Areas Needing Assistance Socks Comments OT Dressing Comments MAX A for socks at this time. Pt educated may benefit from medical scribe pending how hip pain effects her ability to bend over. Otherwise pt states that son would probably assist her . OT ADL-Toileting Comments OT Toileting Comments Catheter in at this time. M5 OT- IP IADL's Start: 08/12/18 13:31 Freq: Status: Active Protocol: Document 08/12/18 13:31 [facility] (Rec: 08/12/18 13:48 [facility] [id number]) OT-Instrumental Activities of Daily Living Meal Preparation Meal Preparation Comments Pt states son to assist. Senior Sustainability Consultant Senior Sustainability Consultant Comments Pt states son to assist. M6 OT- IP Functional Cognition Start: 08/12/18 13:31 Freq: Status: Active Protocol: Document 08/12/18 13:31 [facility] (Rec: 08/12/18 13:48 [facility] [id number]) Cognitive Factors Limiting Selfcare Function Cognitive Ability Level of Alertness Alert Patient Orientation Name Place Situation Attention Span Ability Capable of Focused Attention Capable of Sustained Attention Ability to Follow Commands Able to Follow One Step Commands Memory Description Immediate Intact Short Term Impaired Minister Assistant Intact Safety Awareness Underestimates Need for Assistance Problem Solving Ability Needs Assist to Identify Solutions Cognitive Comments Cognitive Assessment Comments Pt is impulsive and needing vc for safety with FWW, pt tends not to want to use FWW. Pt trying to put her hand on the tray table to push versus use of FWW. M7 OT- IP Mobility and Balance Start: 08/12/18 13:31 Freq: Status: Active Protocol: Document 08/12/18 13:31 [facility] (Rec: 08/12/18 13:48 [facility] [id number]) OT- Bed Mobility Assessment Rolling Type of Rolling Roll to Right Level of Assistance Standby Assistance Head of Bed Elevated Supine to Sit Supine to Sit Assist Standby Assistance Sit to Supine Sit to Supine Assist Minimal Assistance Scooting Scooting to Edge of Bed Standby Assistance OT-Transfer Assessment Sit to and From Stand Sit to and from Stand Contact Guard Assistance 1 Person Assistance Transfers Transfer Ability Contact Guard Assistance 1 Person Assistance Technique Transfer Destination Bed Wheelchair Transfer Technique Stand Step Pivot Devices Transfer Assistive Devices Front Wheeled Walker Comments Mobility Comments Pt not wanting use of gait belt. Pt needing JUNE to help get RLE back into the bed. OT- Balance Assessment Sitting Balance and Reactions Static Sitting Balance Ability Normal Dynamic Sitting Balance Ability Good Standing Balance and Reactions Static Standing Balance Ability Fair M8 OT- IP Objective Assessments Start: 08/12/18 13:31 Freq: Status: Active Protocol: Document 08/12/18 13:31 [facility] (Rec: 08/12/18 13:48 [facility] [id number]) OT Gross Range of Motion Upper Extremity Range of Motion Assessment Within Functional Limits OT Strength Upper Extremity Strength Assessment Within Functional Limits M9 OT- IP Assessment and Plan Start: 08/12/18 13:31 Freq: Status: Active Protocol: Document 08/12/18 13:31 [facility] (Rec: 08/12/18 13:48 [facility] [id number]) OT Summary Assessment and Plan Potential Rehabilitation Potential Good Analytic Complexity at Evaluation Low Summary OT Impairments Pain Balance Functional Cognition Functional Mobility Dressing Toileting Bathing Toilet Transfers Shower Transfers Progress Towards Goals Progressing Toward Goals Assessment Summary Pt's main barriers are steps, decreased safety awareness, and now needing assist for ADL and functional mobility needs . Pending family training pt may go home with family assist and , which pt prefers versus short skilled rehab. Goals Grooming Goal Standby Assistance Dressing Goal Standby Assistance Toileting Goal Standby Assistance Bathing Goal Contact Guard Assistance Toilet Transfer Goal Standby Assistance Shower Transfer Goal Standby Assistance Patient/Caregiver Education Goal Caregiver Independent Assisting Patient Days to Meet Goals 5 Treatment Plan OT Treatment Plan ADL Training Functional Cognition Training Functional Mobility Patient/Family Education Discharge Planning Other Treatment Recommendations and Next Dressing/shower safety. Treatment Focus Discharge Recommendations OT Discharge Recommendations SNF Rehab versus Home with 25/03 and
--- NOTE | 2018-08-12 15:15 | PT.IPTN ---
Current Diagnoses Unspecified intracapsular fracture of right femur, initial encounter for closed fracture (08/11/18) Surgery Performed Operation Date: 08/11/18 16:00 Actual Procedures p ORIF Hip/Cannulated Screws(Right) - Arun Melchor MD Physical Therapy Treatment Note M2 PT-IP Current Condition Start: 08/11/18 13:29 Freq: NEEDED Status: Active Protocol: Document 08/12/18 09:37 AB (Rec: 08/12/18 13:21 AB [id number]) Physical Therapy Current Condition Current Condition Evaluation Date 08/12/18 Treatment Diagnosis R supcapital/ femoral neck fx s/p pecutaneous screw fixation ; diff. in walk Onset Date 08/11/18 Weight Bearing Status Weight Bearing Status Weight Bear as Tolerated M3 PT-IP Subjective Start: 08/11/18 13:29 Freq: NEEDED Status: Active Protocol: Document 08/12/18 15:15 AB (Rec: 08/12/18 16:10 AB [id number]) Subjective Physical Therapy Visit Type Type Treatment Note Visit Start Time 15:15 Visit Stop Time 15:32 Total Visit Minutes 17 Number of OPERATIONS INTELLIGENCE SUPERINTENDENT Visits 0 Physical Therapy Visit Comments Patient Comments pt agreeable to do PT Therapy Pain Assessment Pain When Pain Assessed At Rest Pain Present Pain Present Pain Reported Location Right Hip Scale Used pain scale not stated M4 PT-IP Mobility and Gait Start: 08/11/18 13:29 Freq: NEEDED Status: Active Protocol: Document 08/12/18 15:15 AB (Rec: 08/12/18 16:10 AB [id number]) PT-Bed Mobility Assessment Supine to Sit Supine to Sit Standby Assistance Scooting Scooting to Edge of Bed Standby Assistance PT-Transfer Assessment Sit to and From Stand Sit to and from Stand Contact Guard Assistance 1 Person Assistance Use of Upper Extremities Gait Assessment Gait Gait Assistance Required: Contact Guard Assist Distance (Feet) 40 Able to Maintain Weight Bearing Status Yes During Gait Assistive Devices Assistive Device Gait Belt Front Wheeled Walker Orthotic/Prosthetic Devices or Brace: No Gait Deviations General Gait Pattern Antalgic Festinating Factors Limiting Gait Function Factors Limiting Gait Function Decreased Activity Tolerance Decreased Strength Difficulty Following Directions Pain Poor Balance Poor Safety Awareness Respiratory Distress Comments Gait Comments Pt continues to have SOB with ambulation and with 2 L/min O2 . O2 sat ~ 90 to 91%. pt with productive cough. M5 PT-IP Objective Assessments Start: 08/11/18 13:29 Freq: NEEDED Status: Active Protocol: Document 08/12/18 09:37 AB (Rec: 08/12/18 13:21 AB [id number]) Orientation Orientation/Cognition Level of Alertness Alert Orientation Name Place Situation Safety Awareness Decreased Safety Awareness Memory Description Short Term Impaired Alf Impaired Gross Range of Motion Lower Extremity ROM Assessment Within Functional Limits Strength Lower Extremity Strength Assessment Right Impaired Hip 3-/5 Knee 3-/5 Sensation Assessment Sensation Gross Sensation WNL M6 PT-IP Treatment Start: 08/11/18 13:29 Freq: NEEDED Status: Active Protocol: Document 08/12/18 15:15 AB (Rec: 08/12/18 16:10 AB [id number]) Physical Therapy Treatment Education Education Provided Safety M7 PT-IP Assessment and Plan Start: 08/11/18 13:29 Freq: NEEDED Status: Active Protocol: Document 08/12/18 15:15 AB (Rec: 08/12/18 16:10 AB [id number]) PT Summary Assessment and Plan Potential Rehabilitation Potential Good Summary Impairments Pain ROM Strength Balance Coordination Sensation Tone Cognition Bed Mobility Transfers Gait Activity Tolerance Progress Towards Goals Slow Progress due to Activity Tolerance Assessment Summary pt requiring CGA with mobility . informed pt regarding SNF rehab but pt refusing stated that she was able to manage at home prior to surgery and she will be able to after. pt is not sure if son will be ble to assist. d/c plan depending on pt's progress. caregiver training will be conducted when appropriate as well as stair climbing. pt has 4 steps to enter without rails. Goals Bed Mobility Goal Independent Transfer Goal Standby Assistance Front Wheeled Walker Four Wheeled Walker Gait Goal Standby Assistance Front Wheel Walker Four Wheel Walker Gait Distance 150 Other Goals up/down 4 steps without rails using AD min A Days to Meet Goals 3 Frequency of Treatment Frequency Of Treatment Twice a Day Treatment Plan Physical Therapy Treatment Plan Bed Mobility Training Transfer Training Gait Training Therapeutic Exercise Balance Retraining Post Op Education Discharge Planning Hot or Cold Pack Neuromuscular Re-ed Coordination Retraining Manual Therapy Other Recommendations and Next Treatment ambulation Focus Recommendations To Nursing Amount of Assist Needed 1 Person Assist Discharge Recommendations PT Discharge Recommendations Home with 24/7 Assist Home Health SNF Rehab Other Discharge Recommendations SNF vs home with 24/7 and homehealth PT Equipment Needed for Home Before FWW/SPC Discharge
--- NOTE | 2018-08-12 16:45 | PC.NURSE ---
Addendum entered by Cami Milligan R.N. 08/12/18 22:59: Uneventful evening. HL intact. Denies discomfort. Calm and cooperative. Gardner cath patent clear yellow urine Call light w/in reach, bed alarm on for pt safety. Continue w/plan of care. Original Note: Pt watching TV. Denies discomfort. Taken for CT chest w/o incidence. SpO2 95% 2L, wheezes noted throughout. Occasional productive cough w/clear sputum. Call light w/in reach, bed alarm on for pt safety.
[2018-08-12] MEDS: ALBUTEROL/IPRATROPIUM 3 ML AMPUL INH (19:10)
[2018-08-13] VITALS (11 sets, daily range): BP systolic 137–176; BP diastolic 67–88; PULSE 62–83; RESP 16–21; TEMP 36.6–36.9; O2SAT 86–94
--- NOTE | 2018-08-13 | DI.CT.S_ITS ---
PROCEDURE: CT ANGIO CHEST ABDOMEN PELVIS INDICATIONS: ANEURYSM WITH POSS CHRONIC DISSECTION ; LUNG MASS TECHNIQUE: Precontrast 5 mm thick sections acquired from the lung apices to the iliac crests. After the administration of intravenous contrast, 2.5 mm thick sections again acquired from the lung apices to the iliac crests. Maximum intensity projection (MIP) oblique sagittal and coronal reformats were then acquired. For radiation dose reduction, the following was used: automated exposure control. COMPARISON: [facility], CT, CT CHEST WO CON, 08/12/2018, 16:16. FINDINGS: Image quality: Excellent. AORTA: There is a annuloaortic ectasia measuring up to 4.2 cm at the 11:00 and 5:00 position. Scattered atheromatous calcifications are present in the thoracic aortic arch. Patient is likely status post repair of the ascending thoracic aorta. A small saccular outpouching is present at the medial aspect of the arch near the ligamentum arteriosum suggesting either a small pseudoaneurysm or ductus diverticulum. No findings to suggest acute dissection. There is a large mural thrombus within fusiform dilatation of the inferior descending thoracic aorta. No findings to suggest contrast extravasation into the mural thrombus. No extra aortic extravasation. No aortic dissection of the descending thoracic aorta. CHEST: Lungs and pleura: There is severe centrilobular emphysema with an apical predominance. A heterogeneous 1.9 x 1.7 cm mass with spiculated margins is present within the inferior posterior aspect of the left upper lobe. A 1.7 x 1.3 cm lobulated mass is present within the superior segment of the right lower lobe. Probable atelectasis is present at the bilateral lung bases. No pleural effusion. No pneumothorax. No acute air space opacities. Mediastinum: Heart size is normal. No pericardial effusion. No mediastinal or hilar adenopathy by size criteria. Central pulmonary arteries are normal in size. Esophagus is normal in caliber. No hiatal hernias. Bones and chest wall: A 9 mm intermediate density lesion is present within the lower inner quadrant of the left breast (series 6, image 42). No axillary adenopathy by size criteria. An 8mm calcification is present within the right thyroid lobe. Thyroid gland is otherwise unremarkable. No suspicious bony lesions. No vertebral body compression fractures. ABDOMEN: Vasculature: There is a moderate to high-grade stenosis at the origin of the celiac axis. The SMA is widely patent. A high grade stenosis is present at the origin of the right renal artery and a moderate stenosis is present at the origin of the left renal artery. There is a large eccentric abdominal aortic mural thrombus. There is fusiform aneurysmal dilatation of the infrarenal abdominal aorta which measures 4.9 cm in oblique axial diameter. The there is a high-grade stenosis at the origin of the left common iliac artery and the left external iliac artery is occluded. There is a severe stenosis within the right external iliac artery. Solid organs: The liver is normal in size and enhancement. The gallbladder is surgically absent. The spleen demonstrates normal size and enhancement. There is moderate cortical atrophy of the right kidney and mild cortical atrophy of the left kidney. No hydronephrosis or nephrolithiasis. The pancreas is unremarkable. No adrenal nodules. Peritoneum and bowel: No free fluid or air. Bowel loops are normal in caliber and wall thickness. There are scattered sigmoid diverticula. No evidence for diverticulitis. Nodes and vessels: No retroperitoneal or mesenteric adenopathy by size criteria. Inferior vena cava is normal in morphology. Miscellaneous: No ventral hernias. PELVIS: Genitourinary: Bladder is decompressed and a Gardner catheter is present. A small amount of gas is present within the bladder likely secondary to catheterization. Miscellaneous: No inguinal hernias or adenopathy. No ventral hernias. Bones: No suspicious bony lesions. No vertebral body compression fractures. IMPRESSION: 1. 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 No findings to suggest dissection, contrast extravasation, or extravasation into the mural thrombus. 2. Small saccular outpouching of the aortic arch. Differential considerations include pseudoaneurysm in ductus diverticulum. Please note, comparison with prior studies would be helpful to evaluate for interval change. 3. Right and left pulmonary mass lesions suspicious for neoplasm. The posterior left mass may be amenable to percutaneous biopsy if clinically indicated. However, given the severe emphysema, there is a high risk for recalcitrant pneumothorax and resultant chest tube. 4. Abdominal aortic aneurysm with large mural thrombus. 5. Severe right and moderate left renal artery stenosis with resultant cortical t atrophy as above. 6. 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 Dictated by: Faviola Goodman M.D. on 08/13/2018 at 9:47 Approved by: Faviola Goodman M.D. on 08/13/2018 at 10:36
[2018-08-13 05:51] LABS: Add Manual Diff / Slide Review NO; Basophils Percent Auto 0.4 % (0-2); Eosinophils Percent Auto 0.8 % (2-4); Hematocrit 38.7 % (36-46); Hemoglobin 13.2 g/dL (12.0-16.0); Lymphocytes Percent Auto 9.4 % (25-40); Mean Corpuscular HGB Conc 34.2 % (30-36); Mean Corpuscular Hemoglobin 29.7 PG (26-34); Monocytes Percent Auto 10.8 % (3-14); Neutrophils Absolute Auto 7500 /uL (3000-5900); Neutrophils Percent Auto 78.6 % (50-75); Platelet Count 200 X10^3/uL (150-400); Red Blood Cell Count 4.45 X10^6/uL (4.0-5.2); Red Cell Distribution Width 13.6 % (11.6-14.8); White Blood Cell Count 9.5 X10^3/uL (4.5-11.0)
[2018-08-13 05:59] LABS: Alanine Aminotransferase 27 IU/L (9-52); Albumin 3.7 g/dL (3.5-5.0); Albumin Globulin Ratio 1.4 (1.0-2.8); Alkaline Phosphatase 66 U/L (38-126); Aspartate Aminotransferase 25 IU/L (14-36); BUN Creatinine Ratio 18.6 (6-22); Bilirubin Total 0.5 mg/dL (0.2-1.3); Blood Urea Nitrogen 13 mg/dL (7-17); Calcium 9.9 mg/dL (8.4-10.2); Carbon Dioxide 33 mmol/L (22-32); Chloride 98 mmol/L (98-107); Estimated Glomerular Filt Rate > 60.0 mL/min (>60); Globulin 2.7 g/dL (1.7-4.1); Glucose 104 mg/dL (80-110); HEMOLYSIS < 15 (0-50); Potassium 4.3 mmol/L (3.4-5.1); Sodium 138 mmol/L (137-145); Total Protein 6.4 g/dL (6.3-8.2)
[2018-08-13] MEDS: ACETAMINOPHEN 325 MG TABLET 975 MG PO ×3 (10:07→20:43)
[2018-08-13] MEDS: LISINOPRIL 20 MG TABLET PO (10:08)
[2018-08-13] MEDS: CALCIUM CARB/VIT D3 500/200 TABLET 1 EACH PO (10:08)
[2018-08-13] MEDS: FUROSEMIDE 20 MG/2 ML VIAL IV (10:09)
[2018-08-13] MEDS: ENOXAPARIN 40 MG/0.4 ML SYRINGE SUBCUT (10:09)
--- NOTE | 2018-08-13 10:40 | PM.PNPO.1 ---
Subjective Date Patient Seen: 08/13/18 Time Patient Seen: 10:40 Interval history: Hospital day 3, postop day 2 following right hip fracture with percutaneous screws by Dr. Melchor. She has remained stable orthopedically. She is being followed by hospitalist for medical issues. Apparently there was a issue of aortic aneurysm and patient had scan done today. She is weight-bearing as tolerated to right leg. Using oxycodone for pain. Patient lives at home with her son. The patient is progressing slowly with PT. Exam Vital Signs (past 8 hours): - 08/13/18 04:12 08/13/18 06:43 08/13/18 07:10 Temperature 98.3 F 97.9 F Pulse Rate 69 74 Respiratory Rate 17 18 Blood Pressure 150/87 H 155/75 H Pulse Oximetry 86 L 94 92 08/13/18 08:41 08/13/18 10:08 Temperature Pulse Rate Respiratory Rate Blood Pressure 155/75 H Pulse Oximetry 92 Oxygen Delivery Method Room Air Oxygen Flow Rate 0 Narrative Exam Narrative: Alert, oriented in no acute distress resting in bed. Right leg. Dressing to right lateral hip is dry without drainage or inflammation. Hemovac in place. No calf pain or swelling. Pulses symmetrical. Objective Labs Result Diagrams: 08/13/18 05:35 08/13/18 05:35 Labs: Laboratory Results - last 24 hr 08/13/18 08/13/18 05:35 05:35 WBC 9.5 RBC 4.45 Hgb 13.2 Hct 38.7 MCV 87.0 MCH 29.7 MCHC 34.2 RDW 13.6 Plt Count 200 Neut % (Auto) 78.6 H Lymph % (Auto) 9.4 L Mcduffie % (Auto) 10.8 Eos % (Auto) 0.8 L Baso % (Auto) 0.4 Neut # (Auto) 7500 H Sodium 138 Potassium 4.3 Chloride 98 Carbon Dioxide 33 H BUN 13 Creatinine 0.70 Estimated GFR > 60.0 BUN/Creatinine Ratio 18.6 Glucose 104 Calcium 9.9 Total Bilirubin 0.5 AST 25 ALT 27 Alkaline Phosphatase 66 Total Protein 6.4 Albumin 3.7 Globulin 2.7 Albumin/Globulin Ratio 1.4 Assessment & Plan Post-op Postoperative Procedures Operation Date: 08/11/18 16:00 Actual Procedures Side Surgeon p ORIF Hip/Cannulated Screws Right Arun Melchor MD Plan: Will plan to DC Hemovac once drainage is decreased. Work with physical therapy. Discharge pending clearance by hospitalist. Patient will need follow-up appointment at [facility] office 10-14 days postop for wound check and x-ray. Quality VTE Deep Vein Thrombosis/Pulmonary Embolism Present on Admission: No
--- NOTE | 2018-08-13 10:43 | P.PN_ITS ---
Subjective Date Patient Seen: 08/13/18 Time Patient Seen: 10:40 Interval history: Hospital day 3, postop day 2 following right hip fracture with percutaneous screws by Dr. Melchor. She has remained stable orthopedically. She is being followed by hospitalist for medical issues. Apparently there was a issue of aortic aneurysm and patient had scan done today. She is weight- bearing as tolerated to right leg. Using oxycodone for pain. Patient lives at home with her son. The patient is progressing slowly with PT. Exam Vital Signs (past 8 hours): - 08/13/18 04:12 08/13/18 06:43 08/13/18 07:10 Temperature 98.3 F 97.9 F Pulse Rate 69 74 Respiratory Rate 17 18 Blood Pressure 150/87 H 155/75 H Pulse Oximetry 86 L 94 92 08/13/18 08:41 08/13/18 10:08 Temperature Pulse Rate Respiratory Rate Blood Pressure 155/75 H Pulse Oximetry 92 Oxygen Delivery Method Room Air Oxygen Flow Rate 0 Narrative Exam Narrative: Alert, oriented in no acute distress resting in bed. Right leg. Dressing to right lateral hip is dry without drainage or inflammation. Hemovac in place. No calf pain or swelling. Pulses symmetrical. Objective Labs Result Diagrams: 08/13/18 05:35 08/13/18 05:35 Labs: Laboratory Results - last 24 hr 08/13/18 08/13/18 05:35 05:35 WBC 9.5 RBC 4.45 Hgb 13.2 Hct 38.7 MCV 87.0 MCH 29.7 MCHC 34.2 RDW 13.6 Plt Count 200 Neut % (Auto) 78.6 H Lymph % (Auto) 9.4 L Simpson % (Auto) 10.8 Eos % (Auto) 0.8 L Baso % (Auto) 0.4 Neut # (Auto) 7500 H Sodium 138 Potassium 4.3 Chloride 98 Carbon Dioxide 33 H BUN 13 Creatinine 0.70 Estimated GFR > 60.0 BUN/Creatinine Ratio 18.6 Glucose 104 Calcium 9.9 Total Bilirubin 0.5 AST 25 ALT 27 Alkaline Phosphatase 66 Total Protein 6.4 Albumin 3.7 Globulin 2.7 Albumin/Globulin Ratio 1.4 Assessment & Plan Post-op Postoperative Procedures Operation Date: 08/11/18 16:00 Actual Procedures Side Surgeon p ORIF Hip/Cannulated Screws Right Arun Melchor MD Plan: Will plan to DC Hemovac once drainage is decreased. Work with physical therapy. Discharge pending clearance by hospitalist. Patient will need follow- up appointment at [facility] office 10-14 days postop for wound check and x-ray. Quality VTE Deep Vein Thrombosis/Pulmonary Embolism Present on Admission: No
--- NOTE | 2018-08-13 12:00 | PT.IPTN ---
Current Diagnoses Unspecified intracapsular fracture of right femur, initial encounter for closed fracture (08/11/18) Surgery Performed Operation Date: 08/11/18 16:00 Actual Procedures p ORIF Hip/Cannulated Screws(Right) - Arun Melchor MD Physical Therapy Treatment Note M2 PT-IP Current Condition Start: 08/11/18 13:29 Freq: NEEDED Status: Active Protocol: Document 08/12/18 09:37 AB (Rec: 08/12/18 13:21 AB [id number]) Physical Therapy Current Condition Current Condition Evaluation Date 08/12/18 Treatment Diagnosis R supcapital/ femoral neck fx s/p pecutaneous screw fixation ; diff. in walk Onset Date 08/11/18 Weight Bearing Status Weight Bearing Status Weight Bear as Tolerated M3 PT-IP Subjective Start: 08/11/18 13:29 Freq: NEEDED Status: Active Protocol: Document 08/13/18 12:00 GGD (Rec: 08/13/18 12:40 GGD [email or web address]) Subjective Physical Therapy Visit Type Type Treatment Note Visit Start Time 11:40 Visit Stop Time 12:00 Total Visit Minutes 20 Number of SERVICE CENTER SPECIALIST Visits 1 Physical Therapy Visit Comments Patient Comments Pt willing to work with PT. Therapy Pain Assessment Pain When Pain Assessed At Rest Location Right Hip Scale Used pain scale not stated M4 PT-IP Mobility and Gait Start: 08/11/18 13:29 Freq: NEEDED Status: Active Protocol: Document 08/13/18 12:00 GGD (Rec: 08/13/18 12:40 GGD [id number]) PT-Bed Mobility Assessment Supine to Sit Supine to Sit Standby Assistance Sit to Supine Sit to Supine Standby Assistance Scooting Scooting to Edge of Bed Standby Assistance PT-Transfer Assessment Sit to and From Stand Sit to and from Stand Contact Guard Assistance 1 Person Assistance Use of Upper Extremities Equipment Transfer Assistive Device Gait Belt Front Wheeled Walker Orthotic/Prosthetic Devices or Brace: No Transfers Transfer Destination Bed Transfer Ability Level of Assist Contact Guard Assistance Minimal Assistance 1 Person Assistance Use of Upper Extremities Gait Assessment Gait Gait Assistance Required: Contact Guard Assist Distance (Feet) 60 Able to Maintain Weight Bearing Status Yes During Gait Assistive Devices Assistive Device Gait Belt Front Wheeled Walker Orthotic/Prosthetic Devices or Brace: No Gait Deviations General Gait Pattern Antalgic Decreased Stride Length Decreased Feet Clearance Factors Limiting Gait Function Factors Limiting Gait Function Decreased Activity Tolerance Decreased Strength Difficulty Following Directions Pain Poor Balance Poor Safety Awareness Respiratory Distress M5 PT-IP Objective Assessments Start: 08/11/18 13:29 Freq: NEEDED Status: Active Protocol: Document 08/12/18 09:37 AB (Rec: 08/12/18 13:21 AB [id number]) Orientation Orientation/Cognition Level of Alertness Alert Orientation Name Place Situation Safety Awareness Decreased Safety Awareness Memory Description Short Term Impaired Fire Apparatus Sprinkler Inspector Impaired Gross Range of Motion Lower Extremity ROM Assessment Within Functional Limits Strength Lower Extremity Strength Assessment Right Impaired Hip 3-/5 Knee 3-/5 Sensation Assessment Sensation Gross Sensation WNL M6 PT-IP Treatment Start: 08/11/18 13:29 Freq: NEEDED Status: Active Protocol: Document 08/12/18 15:15 AB (Rec: 08/12/18 16:10 AB [id number]) Physical Therapy Treatment Education Education Provided Safety M7 PT-IP Assessment and Plan Start: 08/11/18 13:29 Freq: NEEDED Status: Active Protocol: Document 08/13/18 12:00 GGD (Rec: 08/13/18 12:40 GGD [email or web address]) PT Summary Assessment and Plan Summary Assessment Summary Pt slowly progressing with bed mobility and gait. She has heavy use of UE on FWW with gait. She would benefit from SNF rehab. She has four steps without rails to enter home. Frequency of Treatment Frequency Of Treatment Twice a Day Treatment Plan Physical Therapy Treatment Plan Bed Mobility Training Transfer Training Gait Training Therapeutic Exercise Balance Retraining Post Op Education Discharge Planning Hot or Cold Pack Neuromuscular Re-ed Coordination Retraining Manual Therapy Other Recommendations and Next Treatment ambulation Focus Recommendations To Nursing Amount of Assist Needed 1 Person Assist Discharge Recommendations PT Discharge Recommendations Home with / Assist Home Health SNF Rehab
--- NOTE | 2018-08-13 13:00 | OT.IP.TRT ---
Current Diagnoses Unspecified intracapsular fracture of right femur, initial encounter for closed fracture (08/11/18) Surgery Performed Operation Date: 08/11/18 16:00 Actual Procedures p ORIF Hip/Cannulated Screws(Right) - Arun Melchor MD Occupational Therapy Treatment Note M2 OT-IP Current Condition Start: 08/12/18 13:31 Freq: Status: Active Protocol: Document 08/12/18 13:31 [facility] (Rec: 08/12/18 13:48 [facility] [id number]) Occupational Therapy Current Condition Current Condition Evaluation Date 08/12/18 Treatment Diagnosis Right closed hip fx, s/p percutaneus screw fixation Diagnosis Onset Date 08/11/18 Weight Bearing Status Weight Bearing Status Weight Bear as Tolerated M3 OT- IP Subjective and Pain Start: 08/12/18 13:31 Freq: Status: Active Protocol: Document 08/13/18 12:52 [facility] (Rec: 08/13/18 13:00 [facility] [id number]) OT- Subjective Occupational Therapy Visit Type Type Treatment Note Visit Start Time 14:42 Visit Stop Time 14:50 Total Visit Minutes 8 Occupational Therapy Visit Comments Patient Comments Pt not agreeable to get up as not wanting to wash up at the sink. Pt states just used the bathroom with FISCAL SPECIALIST, FISCAL SPECIALIST states just CGA with FWW but pt able to do all toileting needs on her own. M4 OT- IP ADL's Start: 08/12/18 13:31 Freq: Status: Active Protocol: Document 08/13/18 12:52 [facility] (Rec: 08/13/18 13:00 [facility] [id number]) OT ADL-Dressing General Eval Lower Body Dressing Ability Independent Comments OT Dressing Comments Independent to anitha/doff socks on her own. Pt able to independently get into and out of the bed. M5 OT- IP IADL's Start: 08/12/18 13:31 Freq: Status: Active Protocol: Document 08/12/18 13:31 [facility] (Rec: 08/12/18 13:48 [facility] [id number]) OT-Instrumental Activities of Daily Living Meal Preparation Meal Preparation Comments Pt states son to assist. Chair Lift Operator Chair Lift Operator Comments Pt states son to assist. M6 OT- IP Functional Cognition Start: 08/12/18 13:31 Freq: Status: Active Protocol: Document 08/12/18 13:31 [facility] (Rec: 08/12/18 13:48 [facility] [id number]) Cognitive Factors Limiting Selfcare Function Cognitive Ability Level of Alertness Alert Patient Orientation Name Place Situation Attention Span Ability Capable of Focused Attention Capable of Sustained Attention Ability to Follow Commands Able to Follow One Step Commands Memory Description Immediate Intact Short Term Impaired Fpc Intact Safety Awareness Underestimates Need for Assistance Problem Solving Ability Needs Assist to Identify Solutions Cognitive Comments Cognitive Assessment Comments Pt is impulsive and needing vc for safety with FWW, pt tends not to want to use FWW. Pt trying to put her hand on the tray table to push versus use of FWW. M7 OT- IP Mobility and Balance Start: 08/12/18 13:31 Freq: Status: Active Protocol: Document 08/12/18 13:31 [facility] (Rec: 08/12/18 13:48 [facility] [id number]) OT Gross Range of Motion Upper Extremity Range of Motion Assessment Within Functional Limits OT Strength Upper Extremity Strength Assessment Within Functional Limits M9 OT- IP Assessment and Plan Start: 08/12/18 13:31 Freq: Status: Active Protocol: Document 08/13/18 12:52 [facility] (Rec: 08/13/18 13:00 [facility] [id number]) OT Summary Assessment and Plan Potential Rehabilitation Potential Good Analytic Complexity at Evaluation Low Summary OT Impairments Pain Balance Functional Cognition Functional Mobility Dressing Toileting Bathing Toilet Transfers Shower Transfers Progress Towards Goals Progressing Toward Goals Assessment Summary Pt progressing with ADL needs and main barrier is steps at this time. Therefore pending steps and family training skilled rehab versus home with assist. Goals Grooming Goal Independent Dressing Goal Independent Toileting Goal Independent Toilet Transfer Goal Independent Patient/Caregiver Education Goal Caregiver Independent Assisting Patient Days to Meet Goals 5 Frequency of Treatment Frequency Of Treatment Once a Day Treatment Plan OT Treatment Plan ADL Training Functional Cognition Training Functional Mobility Patient/Family Education Discharge Planning Discharge Recommendations OT Discharge Recommendations Home with / Assist Home Health SNF Rehab
--- NOTE | 2018-08-13 13:14 | PM.PN.1 ---
Subjective Date Patient Seen: 08/13/18 Time Patient Seen: 11:15 Interval history: DEMENTIA AND HARD OF HEARING OTHERWISE NO SIGNIFICANT ISSUES OVERNIGHT NO CP/SOB OK WITH DC HUFFMAN IN AM Exam Vital Signs (past 8 hours): - 08/13/18 06:43 08/13/18 07:10 08/13/18 08:41 Temperature 98.3 F 97.9 F Pulse Rate 69 74 Respiratory Rate 17 18 Blood Pressure 150/87 H 155/75 H Pulse Oximetry 94 92 92 08/13/18 10:08 08/13/18 12:33 Temperature 98.1 F Pulse Rate 69 Respiratory Rate 16 Blood Pressure 155/75 H 137/77 Pulse Oximetry 88 L Oxygen Delivery Method Room Air Oxygen Flow Rate 0 Narrative Exam Narrative: NO ACUTE DISTRESS. PATIENT IS ALERT ORIENTED X 2. VITAL SIGNS STABLE HEAD ATRAUMATIC NORMOCEPHALIC NECK : SUPPLE WITHOUT ADENOPATHY NO CAROTID BRUITS EYE: EOMI, PERRLA, NORMAL CONJUNCTIVA; NO JAUNDICE CHEST: REGULAR RATE. NO RUBS. PMI IS NON DISPLACED. NO MURMURS; NORMAL S1-S2 PULMONARY: DECREASED BS OVER THE BASES. MILD BIBASILAR CRACKLES NOTED; NO INCREASED DULLNESS TO PERCUSSION ABDOMEN: SOFT. NON TENDER. NON DISTENDED. BOWEL SOUNDS ARE PRESENT IN ALL 4 QUADRANTS. NO MASS. EXTREMITIES: NO EDEMA.. NO CYANOSIS CLUBBING NOTED. NEURO: CRANIAL NERVES 2-12 GROSSLY INTACT. NO FOCAL NEUROLOGICAL DEFICIT NOTED. MSK: DISCOMFORT WITH ACTIVE AND PASSIVE ROM ON THE RT LOWER EXT; NO JOINT EFFUSION. SKIN: NORMAL FOR ETHNICITY; NO ECCHYMOSIS. NO LESION. GOOD TURGOR.; NO RASHES : NORMAL EXTERNAL GENITALIA. PSYCH : APPROPRIATE MOOD AND AFFECT. ALERT AWAKE ORIENTED X3 Objective Labs Result Diagrams: 08/13/18 05:35 08/13/18 05:35 Labs: Laboratory Results - last 24 hr 08/13/18 08/13/18 05:35 05:35 WBC 9.5 RBC 4.45 Hgb 13.2 Hct 38.7 MCV 87.0 MCH 29.7 MCHC 34.2 RDW 13.6 Plt Count 200 Neut % (Auto) 78.6 H Lymph % (Auto) 9.4 L [place] % (Auto) 10.8 Eos % (Auto) 0.8 L Baso % (Auto) 0.4 Neut # (Auto) 7500 H Sodium 138 Potassium 4.3 Chloride 98 Carbon Dioxide 33 H BUN 13 Creatinine 0.70 Estimated GFR > 60.0 BUN/Creatinine Ratio 18.6 Glucose 104 Calcium 9.9 Total Bilirubin 0.5 AST 25 ALT 27 Alkaline Phosphatase 66 Total Protein 6.4 Albumin 3.7 Globulin 2.7 Albumin/Globulin Ratio 1.4 Assessment & Plan Plan: Assessment/Plan Narrative: IMPRESSION AND PLAN ACUTE FALL WITH TRAUMA; ACCIDENTAL; GROUND LEVEL ; FALL PRECAUTIONS; PT/OT S/P HIP FX REPAIR WITH SCREW INSERTIONS; APPEARS IMPROVED SURGICALLY AND CLINICALLY; NO S/S OF ACUTE COMPLICATIONS; SURG TEAM ASSISTANCE IN THIS CASE IS GREATLY APPRECIATED; FOLLOW CLOSELY ; 5 W'S LEUKOCYTOSIS; RESOLVED; WAS LIKELY ACUTE REACTANT TO ACUTE FX AND SURG PROCEDURE; DEMENTIA; APPEARS AT BASELINE; RE-ORIENT INDICATED; KEEP LIGHTS ON AT ALL TIMES; WATCH FOR HOSPITAL PSYCHOSIS; PRN MEDS INDICATED POSS OSTEOPOROSIS ; VIT D AND CA WHILE IN HOUSE; BONE SCAN AND OTHER MEDS OUTPT WHEN INDICATED POSS ACUTE ON CHRONIC RESP FAILURE; DEC OXY SAT REPORTED ONCE AGAIN; LIKELY DUE TO COPD EXACERBATION; OXYGEN THERAPY TO MAINTAIN PROPER SAT; TELEMETRY; INCENTIVE SPIROMETRY; OOB/ IN CHAIR TID; CONT PULSE OX; POSS ACUTE COPD EXACERB; ON STEROIDS; ON AZITHRO; RT CONSULTED; DUONEBS ORDERED WELL; EVALUATE FOR HOME OXYGEN; SERIAL CXR AND ABG TO FOLLOW INDICATED; CONT PULSE OX LUNG MASS ; JUAN; POSS CARCINOMA; CONSIDER BX IN LATER TIME; FURTHER WORK UP COULD BE DONE OP IF INDICATED AAA; 4.9 PER CTA; WILL TRY AND RTRANSFER TO FACILITY WITH VASCULAR SURGERY SERVICE; BP CONTROL FOR NOW; MONITOR CLOSELY TRHOMBUS TO AAA AND THORACIC AORTA WALL; STARTED ON LOVENOX BID; CONSIDER LTAC SUCH WARFARIN VS NEWER AGENTS INDICATED; CONSIDER ECHO WELL SEVERE VASCULOPATHY; RENAL AND ILIAC ARTERIES DISEASE REPORTED; REFER TO VASCULAR SURGERY FOR IMPUT/RECOMM; ON ANTICOAG FOR NOW; TREAT INDICATED POSS PSEUDOANEURYSM OF THE AORTIC ARCH; MONITOR FOR NOW; REFER TO VASCULAR SURGERY PROGNOSIS APPEARS GUARDED AT THIS TIME TRANSFER TO OTHER FACILITY FOR HIGHER LEVEL OF CARE IF POSSIBLE Quality VTE Deep Vein Thrombosis/Pulmonary Embolism Present on Admission: No
--- NOTE | 2018-08-13 14:30 | PT.IPTN ---
Current Diagnoses Unspecified intracapsular fracture of right femur, initial encounter for closed fracture (08/11/18) Surgery Performed Operation Date: 08/11/18 16:00 Actual Procedures p ORIF Hip/Cannulated Screws(Right) - Arun Melchor MD Physical Therapy Treatment Note M2 PT-IP Current Condition Start: 08/11/18 13:29 Freq: NEEDED Status: Active Protocol: Document 08/12/18 09:37 AB (Rec: 08/12/18 13:21 AB [id number]) Physical Therapy Current Condition Current Condition Evaluation Date 08/12/18 Treatment Diagnosis R supcapital/ femoral neck fx s/p pecutaneous screw fixation ; diff. in walk Onset Date 08/11/18 Weight Bearing Status Weight Bearing Status Weight Bear as Tolerated M3 PT-IP Subjective Start: 08/11/18 13:29 Freq: NEEDED Status: Active Protocol: Document 08/13/18 14:30 GGD (Rec: 08/13/18 15:43 GGD [id number]) Subjective Physical Therapy Visit Type Type Treatment Note Visit Start Time 14:15 Visit Stop Time 14:30 Total Visit Minutes [address] SCAN TECH Visits 2 Physical Therapy Visit Comments Patient Comments Pt willing to get up. Therapy Pain Assessment Pain When Pain Assessed At Rest Pain Present Pain Present Pain Reported Location Right Hip Scale Used pain scale not stated M4 PT-IP Mobility and Gait Start: 08/11/18 13:29 Freq: NEEDED Status: Active Protocol: Document 08/13/18 14:30 GGD (Rec: 08/13/18 15:43 GGD [id number]) PT-Bed Mobility Assessment Supine to Sit Supine to Sit Standby Assistance Sit to Supine Sit to Supine Standby Assistance Scooting Scooting to Edge of Bed Standby Assistance PT-Transfer Assessment Sit to and From Stand Sit to and from Stand Standby Assistance 1 Person Assistance Use of Upper Extremities Equipment Transfer Assistive Device Gait Belt Front Wheeled Walker Orthotic/Prosthetic Devices or Brace: No Transfers Transfer Destination Bed Transfer Ability Level of Assist Contact Guard Assistance 1 Person Assistance Use of Upper Extremities Gait Assessment Gait Gait Assistance Required: Contact Guard Assist Distance (Feet) 40 Able to Maintain Weight Bearing Status Yes During Gait Assistive Devices Assistive Device Gait Belt Front Wheeled Walker Orthotic/Prosthetic Devices or Brace: No Gait Deviations General Gait Pattern Antalgic Decreased Stride Length Decreased Feet Clearance Factors Limiting Gait Function Factors Limiting Gait Function Decreased Activity Tolerance Decreased Strength Difficulty Following Directions Pain Poor Balance Poor Safety Awareness Respiratory Distress Stair Climbing Assessment Evaluation Level of Assist On Stairs Contact Guard Assistance Minimal Assistance 1 Person Assistance Devices Stair Climbing Assistive Devices Straight Cane Technique/Endurance Stair Climbing Direction Ascend and Descend Stair Climbing Technique Step to Step Number of Steps Climbed 1 Query Text: Stair Climbing Set # Repetitions (reps) 1 Comments Stair Climbing Comments Pt need close CGA and had mild LOB with step. She need mod cues. M5 PT-IP Objective Assessments Start: 08/11/18 13:29 Freq: NEEDED Status: Active Protocol: Document 08/12/18 09:37 AB (Rec: 08/12/18 13:21 AB [id number]) Orientation Orientation/Cognition Level of Alertness Alert Orientation Name Place Situation Safety Awareness Decreased Safety Awareness Memory Description Short Term Impaired Concierge Receptionist Impaired Gross Range of Motion Lower Extremity ROM Assessment Within Functional Limits Strength Lower Extremity Strength Assessment Right Impaired Hip 3-/5 Knee 3-/5 Sensation Assessment Sensation Gross Sensation WNL M6 PT-IP Treatment Start: 08/11/18 13:29 Freq: NEEDED Status: Active Protocol: Document 08/12/18 15:15 AB (Rec: 08/12/18 16:10 AB [id number]) Physical Therapy Treatment Education Education Provided Safety M7 PT-IP Assessment and Plan Start: 08/11/18 13:29 Freq: NEEDED Status: Active Protocol: Document 08/13/18 14:30 GGD (Rec: 08/13/18 15:43 GGD [id number]) PT Summary Assessment and Plan Summary Assessment Summary Pt improving with bed mobility and safety with FWW. She impulsive but had no LOB with gait or transfer. She needed close CGA for step with SPC, but able to self correct LOB. She may D/C home when medically stable. Frequency of Treatment Frequency Of Treatment Twice a Day Treatment Plan Other Recommendations and Next Treatment ambulation, stair mobility. Focus Recommendations To Nursing Amount of Assist Needed 1 Person Assist Discharge Recommendations PT Discharge Recommendations Home with Assistance Home with / Assist Home Health
--- NOTE | 2018-08-13 18:34 | PC.NURSE ---
Addendum entered by Cami Milligan R.N. 08/13/18 21:35: Relatively uneventful evening. Denies discomfort. Dsg CDI right surgical hip. Three punctures left leg intact w/scabs. Planning rehab on D/C. Call light w/in reach, bedalarm on for pt safety. Continue w/plan of care. Original Note: Pt watching TV. Denies discomfort. Dsg to surgical hip CDI. Family in to visit and speak w/MD. Pt and family signed POLST form. Pt now DNR. HL intact/patent. Gardner cath patent clear yellow urine. Call light w/in reach, bed alarm on for pt safety.
[2018-08-14 03:33] VITALS: BP 175/83; PULSE 61; RESP 18; TEMP 36.6; O2SAT 92
[2018-08-14 06:59] LABS: Alanine Aminotransferase 33 IU/L (9-52); Albumin 3.5 g/dL (3.5-5.0); Albumin Globulin Ratio 1.3 (1.0-2.8); Alkaline Phosphatase 66 U/L (38-126); Aspartate Aminotransferase 26 IU/L (14-36); BUN Creatinine Ratio 31.7 (6-22); Bilirubin Total 0.5 mg/dL (0.2-1.3); Blood Urea Nitrogen 19 mg/dL (7-17); Calcium 9.9 mg/dL (8.4-10.2); Carbon Dioxide 29 mmol/L (22-32); Chloride 98 mmol/L (98-107); Estimated Glomerular Filt Rate > 60.0 mL/min (>60); Globulin 2.6 g/dL (1.7-4.1); Glucose 95 mg/dL (80-110); HEMOLYSIS 20 (0-50); Potassium 4.1 mmol/L (3.4-5.1); Sodium 138 mmol/L (137-145); Total Protein 6.1 g/dL (6.3-8.2)
[2018-08-14 07:09] LABS: Basophils Percent Auto 1.4 % (0-2); Eosinophils Percent Auto 0.9 % (2-4); Hematocrit 41.4 % (36-46); Hemoglobin 13.9 g/dL (12.0-16.0); Mean Corpuscular HGB Conc 33.6 % (30-36); Mean Corpuscular Hemoglobin 29.2 PG (26-34); Monocytes Percent Auto 10.9 % (3-14); Neutrophils Absolute Auto 7 /uL (3000-5900); Neutrophils Percent Auto 73.8 % (50-75); Platelet Count 111 X10^3/uL (150-400); Red Blood Cell Count 4.76 X10^6/uL (4.0-5.2); Red Cell Distribution Width 13.7 % (11.6-14.8); White Blood Cell Count 9.8 X10^3/uL (4.5-11.0)
[2018-08-14 07:10] LABS: Add Manual Diff / Slide Review SLIDE REVIEW
--- NOTE | 2018-08-14 07:15 | PC.NURSE ---
08/14 0715, pt alert and oriented with frequent forgetfullness, continues to refuse supplemental O2, trending from 89-91% during this shifts spot checks. Gardner catheter removed at 0630 and IV site discontinued as site was compromised and bothersome to pt. VSS
[2018-08-14 07:29] LABS: Platelet Clumps 1
[2018-08-14 07:50] VITALS: BP 179/80; PULSE 60; RESP 16; TEMP 36.3; O2SAT 93
--- NOTE | 2018-08-14 08:16 | CM.DPC ---
DCP Cont: Noted discharge orders on patient, no aggressive treatments at this time. Met with patient briefly in room, mentioned skilled, patient did not wish to engage in this conversation. Noted that discharge orders state home health. Called son, whom she lives with at home. Also, did not wish to engage in conversation. Let him know that she would be discharged today, and would order home health. 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 P: Patient is to be discharged home today. Will have hospitalist sign face to face, and collaborate on patient at team rounds which disciplines will be needed at home for patient. Christal Baez RN/Elementary Secretary
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
[2018-08-14 08:45] VITALS: O2SAT 93
--- NOTE | 2018-08-14 09:45 | OT.IP.TRT ---
Current Diagnoses Unspecified intracapsular fracture of right femur, initial encounter for closed fracture (08/11/18) Surgery Performed Operation Date: 08/11/18 16:00 Actual Procedures p ORIF Hip/Cannulated Screws(Right) - Arun Melchor MD Occupational Therapy Treatment Note M2 OT-IP Current Condition Start: 08/12/18 13:31 Freq: Status: Active Protocol: Document 08/12/18 13:31 [facility] (Rec: 08/12/18 13:48 [facility] [id number]) Occupational Therapy Current Condition Current Condition Evaluation Date 08/12/18 Treatment Diagnosis Right closed hip fx, s/p percutaneus screw fixation Diagnosis Onset Date 08/11/18 Weight Bearing Status Weight Bearing Status Weight Bear as Tolerated M3 OT- IP Subjective and Pain Start: 08/12/18 13:31 Freq: Status: Active Protocol: Document 08/14/18 09:39 [facility] (Rec: 08/14/18 09:45 [facility] [id number]) OT- Subjective Occupational Therapy Visit Type Type Treatment Note Visit Start Time 09:00 Visit Stop Time 09:20 Total Visit Minutes 20 Occupational Therapy Visit Comments Patient Comments Pt wanting to shower prior to going home. Pt able to get into the shower with FWW however HHSP broken and unable to initiate shower and pt did not just want to sponge off at this time. Work order placed for broken HHSP. Nursing notified and to have aid assist with shower in PM. OT Pain Assessment Pain When Pain Assessed At Rest Pain Present Pain Present Denied Pain M4 OT- IP ADL's Start: 08/12/18 13:31 Freq: Status: Active Protocol: Document 08/14/18 09:39 [facility] (Rec: 08/14/18 09:45 [facility] [id number]) OT ADL-Dressing General Eval Lower Body Dressing Ability Contact Guard Assistance Comments OT Dressing Comments CGA to anitha/doff brief over hips, pt able to anitha/doff socks independently while sitting. M5 OT- IP IADL's Start: 08/12/18 13:31 Freq: Status: Active Protocol: Document 08/12/18 13:31 [facility] (Rec: 08/12/18 13:48 [facility] [id number]) OT-Instrumental Activities of Daily Living Meal Preparation Meal Preparation Comments Pt states son to assist. Director Of Curriculum Director Of Curriculum Comments Pt states son to assist. M6 OT- IP Functional Cognition Start: 08/12/18 13:31 Freq: Status: Active Protocol: Document 08/14/18 09:39 [facility] (Rec: 08/14/18 09:45 [facility] [id number]) Cognitive Factors Limiting Selfcare Function Cognitive Ability Level of Alertness Alert Patient Orientation Name Place Situation Attention Span Ability Capable of Focused Attention Capable of Sustained Attention Ability to Follow Commands Able to Follow One Step Commands Memory Description Immediate Intact Short Term Impaired Care Home Intact Safety Awareness Underestimates Need for Assistance Problem Solving Ability Needs Assist to Identify Solutions Cognitive Comments Cognitive Assessment Comments Pt is impulsive and needing vc to slow down. M7 OT- IP Mobility and Balance Start: 08/12/18 13:31 Freq: Status: Active Protocol: Document 08/14/18 09:39 [facility] (Rec: 08/14/18 09:45 [facility] [id number]) OT- Bed Mobility Assessment Sit to Supine Sit to Supine Assist Standby Assistance OT-Transfer Assessment Sit to and From Stand Sit to and from Stand Standby Assistance Contact Guard Assistance 1 Person Assistance Transfers Transfer Ability Standby Assistance Contact Guard Assistance Technique Transfer Destination Bed Chair Shower Stall Devices Transfer Assistive Devices Front Wheeled Walker Comments Mobility Comments Pt SBA with FWW for even surfaces, however when turning or stepping over threshold will require CGA. OT- Balance Assessment Sitting Balance and Reactions Static Sitting Balance Ability Normal Dynamic Sitting Balance Ability Good Standing Balance and Reactions Static Standing Balance Ability Fair M8 OT- IP Objective Assessments Start: 08/12/18 13:31 Freq: Status: Active Protocol: Document 08/12/18 13:31 [facility] (Rec: 08/12/18 13:48 [facility] [id number]) OT Gross Range of Motion Upper Extremity Range of Motion Assessment Within Functional Limits OT Strength Upper Extremity Strength Assessment Within Functional Limits M9 OT- IP Assessment and Plan Start: 08/12/18 13:31 Freq: Status: Active Protocol: Document 08/14/18 09:39 [facility] (Rec: 08/14/18 09:45 [facility] [id number]) OT Summary Assessment and Plan Potential Rehabilitation Potential Good Analytic Complexity at Evaluation Low Summary OT Impairments Pain Balance Functional Cognition Functional Mobility Dressing Toileting Bathing Toilet Transfers Shower Transfers Progress Towards Goals Progressing Toward Goals Assessment Summary Pt looking to go home today. Pt to have family assist for needs. Frequency of Treatment Frequency Of Treatment Once a Day Treatment Plan OT Treatment Plan ADL Training Functional Cognition Training Functional Mobility Patient/Family Education Discharge Planning Discharge Recommendations OT Discharge Recommendations Home with 25/03 Assist Home Health SNF Rehab
[2018-08-14] MEDS: CALCIUM CARB/VIT D3 500/200 TABLET 1 EACH PO (10:16)
[2018-08-14] MEDS: ACETAMINOPHEN 325 MG TABLET 975 MG PO ×3 (10:16→20:25)
[2018-08-14] MEDS: LISINOPRIL 20 MG TABLET PO (10:16)
--- NOTE | 2018-08-14 10:49 | PM.PNPO.1 ---
Subjective Date Patient Seen: 08/14/18 Time Patient Seen: 10:49 Interval history: Hospital day 4, postop day 3 following right hip fracture with percutaneous screws. Patient doing well. Has been stable postoperatively. Gardner catheter removed this morning and patient has not voided yet. Has been working with physical therapy and progressing. Patient lives at home with her son. They do have multiple stairs in the home. Patient still needs assist for ambulation. Using Tylenol for pain. Exam Vital Signs (past 8 hours): - 08/14/18 03:33 08/14/18 07:50 08/14/18 08:45 Temperature 97.8 F 97.4 F L Pulse Rate 61 60 Respiratory Rate 18 16 Blood Pressure 175/83 H 179/80 H Pulse Oximetry 92 93 93 Oxygen Delivery Method Room Air Oxygen Flow Rate 0 Narrative Exam Narrative: Alert, responsive in no acute distress lying in bed. Right leg. Dressing to right hip is dry without drainage or inflammation. No calf pain or swelling. Pulses symmetrical. Patient is able to move her leg freely. Objective Labs Result Diagrams: 08/14/18 06:15 08/14/18 06:15 Labs: Laboratory Results - last 24 hr 08/14/18 08/14/18 06:15 06:15 WBC 9.8 RBC 4.76 Hgb 13.9 Hct 41.4 MCV 87.0 MCH 29.2 MCHC 33.6 RDW 13.7 Plt Count 111 L Neut % (Auto) 73.8 Lymph % (Auto) 13.0 L [place] % (Auto) 10.9 Eos % (Auto) 0.9 L Baso % (Auto) 1.4 Neut # (Auto) 7 L Clumped Platelets 1 RBC Morphology Not Reportable Sodium 138 Potassium 4.1 Chloride 98 Carbon Dioxide 29 BUN 19 H Creatinine 0.60 Estimated GFR > 60.0 BUN/Creatinine Ratio 31.7 H Glucose 95 Calcium 9.9 Total Bilirubin 0.5 AST 26 ALT 33 Alkaline Phosphatase 66 Total Protein 6.1 L Albumin 3.5 Globulin 2.6 Albumin/Globulin Ratio 1.3 Assessment & Plan Post-op Postoperative Procedures Operation Date: 08/11/18 16:00 Actual Procedures Side Surgeon p ORIF Hip/Cannulated Screws Right Arun Melchor MD Plan: We will change right hip dressing to a CovRsite dressing. Continue with PT. Discharge pending hospitalist clearance. Patient will need follow-up at [facility] [place] office about 2 weeks postop. Quality VTE Deep Vein Thrombosis/Pulmonary Embolism Present on Admission: No
--- NOTE | 2018-08-14 10:52 | PT.IPTN ---
Current Diagnoses Unspecified intracapsular fracture of right femur, initial encounter for closed fracture (08/11/18) Surgery Performed Operation Date: 08/11/18 16:00 Actual Procedures p ORIF Hip/Cannulated Screws(Right) - Arun Melchor MD Physical Therapy Treatment Note M2 PT-IP Current Condition Start: 08/11/18 13:29 Freq: NEEDED Status: Active Protocol: Document 08/12/18 09:37 AB (Rec: 08/12/18 13:21 AB [id number]) Physical Therapy Current Condition Current Condition Evaluation Date 08/12/18 Treatment Diagnosis R supcapital/ femoral neck fx s/p pecutaneous screw fixation ; diff. in walk Onset Date 08/11/18 Weight Bearing Status Weight Bearing Status Weight Bear as Tolerated M3 PT-IP Subjective Start: 08/11/18 13:29 Freq: NEEDED Status: Active Protocol: Document 08/14/18 09:05 GGD (Rec: 08/14/18 10:52 [facility] [id number]) Subjective Physical Therapy Visit Type Type Treatment Note Visit Start Time 08:40 Visit Stop Time 09:05 Total Visit Minutes 25 Number of FISHING VESSEL DECKHAND Visits 3 Physical Therapy Visit Comments Patient Comments Pt willing to work with therapy. She would like to go home. Therapy Pain Assessment Pain When Pain Assessed At Rest Pain Present Pain Present Pain Reported Location Right Hip Scale Used pain scale not stated M4 PT-IP Mobility and Gait Start: 08/11/18 13:29 Freq: NEEDED Status: Active Protocol: Document 08/14/18 09:05 [facility] (Rec: 08/14/18 10:52 GGD [id number]) PT-Bed Mobility Assessment Supine to Sit Supine to Sit Standby Assistance Sit to Supine Sit to Supine Standby Assistance Scooting Scooting to Edge of Bed Standby Assistance PT-Transfer Assessment Sit to and From Stand Sit to and from Stand Standby Assistance 1 Person Assistance Use of Upper Extremities Equipment Transfer Assistive Device Gait Belt Front Wheeled Walker Orthotic/Prosthetic Devices or Brace: No Transfers Transfer Destination Bed Transfer Ability Level of Assist Contact Guard Assistance 1 Person Assistance Use of Upper Extremities Gait Assessment Gait Gait Assistance Required: Contact Guard Assist Distance (Feet) 60 Able to Maintain Weight Bearing Status Yes During Gait Assistive Devices Assistive Device Gait Belt Front Wheeled Walker Orthotic/Prosthetic Devices or Brace: No Gait Deviations General Gait Pattern Antalgic Decreased Stride Length Decreased Feet Clearance Factors Limiting Gait Function Factors Limiting Gait Function Decreased Activity Tolerance Decreased Strength Difficulty Following Directions Pain Poor Balance Poor Safety Awareness Stair Climbing Assessment Evaluation Level of Assist On Stairs Contact Guard Assistance Devices Stair Climbing Assistive Devices Straight Cane Technique/Endurance Stair Climbing Direction Ascend and Descend Stair Climbing Technique Step to Step Number of Steps Climbed 3 Query Text: Stair Climbing Set # Repetitions (reps) 1 Comments Stair Climbing Comments SPC and hand hold assist for stair mobility. M5 PT-IP Objective Assessments Start: 08/11/18 13:29 Freq: NEEDED Status: Active Protocol: Document 08/12/18 09:37 AB (Rec: 08/12/18 13:21 AB [id number]) Orientation Orientation/Cognition Level of Alertness Alert Orientation Name Place Situation Safety Awareness Decreased Safety Awareness Memory Description Short Term Impaired Pelletising Extruder Operator Impaired Gross Range of Motion Lower Extremity ROM Assessment Within Functional Limits Strength Lower Extremity Strength Assessment Right Impaired Hip 3-/5 Knee 3-/5 Sensation Assessment Sensation Gross Sensation WNL M6 PT-IP Treatment Start: 08/11/18 13:29 Freq: NEEDED Status: Active Protocol: Document 08/14/18 09:05 GGD (Rec: 08/14/18 10:52 GGD [id number]) Physical Therapy Treatment Exercises Exercises Ankle Pumps Straight Leg Raises Education Education Provided Safety M7 PT-IP Assessment and Plan Start: 08/11/18 13:29 Freq: NEEDED Status: Active Protocol: Document 08/14/18 09:05 GGD (Rec: 08/14/18 10:52 GGD [id number]) PT Summary Assessment and Plan Summary Assessment Summary Pt improving with mobility. She needs cues for safety. She is impulsive, but uses the FWW. She improved with stair mobility with SPC and hand hold assist. Frequency of Treatment Frequency Of Treatment Twice a Day Treatment Plan Other Recommendations and Next Treatment ambulation, stair mobility. Focus Recommendations To Nursing Amount of Assist Needed 1 Person Assist Discharge Recommendations PT Discharge Recommendations Home with Assistance Home Health
--- NOTE | 2018-08-14 11:10 | CM.DPC ---
Addendum entered by Christal Baez R.N. 08/14/18 15:19: Spoke to Jorje Ramon in ortho regarding patient not having primary provider. Suggested adding Dr. Melchor for now, for she will be seeing him in [id number] days. Updated Joyce and Ulysses at [facility], as well. They understand that they are working with her for therapy, but can contact Dr. Amador's office for any questions related to this. Original Note: DCP Cont: Is noted that patient is to be discharged today with home health. Noted that patient does not have primary provider. Called son to verify, and he stated she does not. Checked in with patient as well, and she also stated the same. Left Joyce a message at [facility], and asked her to call this director case management, as is unclear if she can be seen without a primary provider. Went ahead and faxed clinicals and order over for her to review. P: Patient is to be discharged today, but unclear if she can get home health without a regular provider. Christal Baez RN/Transcription Coordinator
[2018-08-14 11:17] VITALS: BP 147/73; PULSE 64; RESP 18; TEMP 36.6; O2SAT 93
[2018-08-14 15:00] VITALS: BP 147/67; PULSE 78; RESP 17; TEMP 36.8; O2SAT 94
[2018-08-14] MEDS: predniSONE 20 MG TABLET 40 MG PO (16:00)
--- NOTE | 2018-08-14 17:24 | PC.NURSE ---
Addendum entered by Kat Angel R.N. 08/14/18 20:47: at approximately 2019, pt received phone call from son stating that they cannot get their car started to pick her up for discharge. pt upset and nearly tearful. called son to verify. son inquiring if hospital can find a rider for the pt. notified son that CM will be notified tomorrow morning. notified Dr. Melchor and GERHARD Sprague of pt unable to d/c home tonight. Original Note: DISCHARGE Ox3, forgetful but pleasant and cooperative. R hip dressing coming off, changed with coversite. pt denies any numbness/tingling. states pain at 1-2/10, tolerable with scheduled tylenol. no IV access or telemetry monitoring present. per report, pt's son to come to bedside sometime around 1630 for discharge. no show at 1720, pt reports not hearing from family recently and not having any clothing for discharge. called son, stated he is getting pt's bed together and will be to the hospital at 1999. updated pt on son's status. Awaiting son's arrival.
[2018-08-14 19:28] VITALS: BP 173/83; PULSE 64; RESP 18; TEMP 36.6; O2SAT 93
[2018-08-14] MEDS: ENOXAPARIN 80 MG/0.8 ML SYRINGE 65 MG SUBCUT (20:24)
[2018-08-15 01:39] VITALS: BP 192/104; PULSE 62; RESP 18; TEMP 36.4; O2SAT 90
[2018-08-15 01:51] VITALS: O2SAT 93
[2018-08-15 02:29] VITALS: BP 134/92; PULSE 57; RESP 16
--- NOTE | 2018-08-15 04:37 | PC.NURSE ---
Pt is A and O x 4, very independent, ambulating to BR on her own with FWW. Denies pain. Poor hygiene, does not have running water at home, states she hauls it. VSS, LS diminished, S1, S2 irregular.
[2018-08-15 06:17] LABS: Add Manual Diff / Slide Review NO; Basophils Percent Auto 0.3 % (0-2); Eosinophils Percent Auto 0.3 % (2-4); Hematocrit 43.4 % (36-46); Hemoglobin 14.6 g/dL (12.0-16.0); Lymphocytes Percent Auto 9.1 % (25-40); Mean Corpuscular HGB Conc 33.7 % (30-36); Mean Corpuscular Hemoglobin 29.3 PG (26-34); Mean Corpuscular Volume 86.9 fL (80-100); Monocytes Percent Auto 7.7 % (3-14); Neutrophils Absolute Auto 5400 /uL (1500-7000); Neutrophils Percent Auto 82.6 % (50-75); Platelet Count 222 X10^3/uL (150-400); Red Blood Cell Count 4.99 X10^6/uL (4.0-5.2); Red Cell Distribution Width 14.1 % (11.6-14.8); White Blood Cell Count 6.6 X10^3/uL (4.5-11.0)
[2018-08-15 06:23] LABS: Alanine Aminotransferase 19 IU/L (9-52); Albumin 3.7 g/dL (3.5-5.0); Albumin Globulin Ratio 1.3 (1.0-2.8); Alkaline Phosphatase 66 U/L (38-126); Aspartate Aminotransferase 27 IU/L (14-36); BUN Creatinine Ratio 32.9 (6-22); Bilirubin Total 0.4 mg/dL (0.2-1.3); Blood Urea Nitrogen 23 mg/dL (7-17); Calcium 9.9 mg/dL (8.4-10.2); Carbon Dioxide 29 mmol/L (22-32); Chloride 100 mmol/L (98-107); Estimated Glomerular Filt Rate > 60.0 mL/min (>60); Globulin 2.8 g/dL (1.7-4.1); Glucose 125 mg/dL (80-110); HEMOLYSIS 16 (0-50); Potassium 4.2 mmol/L (3.4-5.1); Sodium 139 mmol/L (137-145); Total Protein 6.5 g/dL (6.3-8.2)
[2018-08-15 07:40] VITALS: BP 172/92; PULSE 68; RESP 18; TEMP 36.5; O2SAT 94
--- NOTE | 2018-08-15 08:17 | CM.DPC ---
Addendum entered by Radha Rosas LPN 08/15/18 11:32: Met with pt's son Joshua when he arrived. Pt is noted to be disabled and in a w/c. He also was able to walk about the patient's room. RYAN Navarrete and this d/c event planner spoke with him to obtain clarity on some of the d/c issues. Pt is agreeable to seeing a PCP again. Yoshi goes to the [facility] and RYAN Navarrete is encouraging pt to establish with them KEITH. Yoshi will assist with this. Cydney BRIGHT has been updated by CMANelia re the d/c today instread of yesterday. Pt will d/c to home as soon as all paperwork is completed by RYAN Navarrete. The POLST from that was completed yesterday is sent home with pt and Bill. No [facility]. Original Note: Addendum entered by Radha Rosas LPN 08/15/18 08:28: Spoke with Shanthi (name and number confirmed on the contact list): [phone]: she said she and Bill our coming over this morning to pick pt up. Pt is updated and seems relieved. She is noted sitting up now in bed and eating breakfast. Original Note: DCP: continued: met with pt this morning re transport issues. Assured her a taxi could be set up to get her home (MRF is needed;likely). Agreed also to call her son and/or Lica she has the car usually and he may be at her place. Went briefly over snf benefit for short term is case the plan for home falls through. Pt listen's but is focused on getting home. During conversation noticed pt covering L eye. She states it is blurry and might be swollen. RYAN Navarrete is notified. P: follow as above. DC order of yesterday is noted.
[2018-08-15 10:00] VITALS: O2SAT 93
[2018-08-15] MEDS: ENOXAPARIN 80 MG/0.8 ML SYRINGE 65 MG SUBCUT (10:19)
[2018-08-15] MEDS: CALCIUM CARB/VIT D3 500/200 TABLET 1 EACH PO (10:19)
[2018-08-15] MEDS: LISINOPRIL 20 MG TABLET PO (10:19)
[2018-08-15] MEDS: predniSONE 20 MG TABLET 40 MG PO (10:19)
[2018-08-15] MEDS: ACETAMINOPHEN 325 MG TABLET 975 MG PO (10:19)
--- NOTE | 2018-08-15 10:25 | PT.IPTN ---
Current Diagnoses Unspecified intracapsular fracture of right femur, initial encounter for closed fracture (08/11/18) Surgery Performed Operation Date: 08/11/18 16:00 Actual Procedures p ORIF Hip/Cannulated Screws(Right) - Arun Melchor MD Physical Therapy Treatment Note M2 PT-IP Current Condition Start: 08/11/18 13:29 Freq: NEEDED Status: Active Protocol: Document 08/12/18 09:37 AB (Rec: 08/12/18 13:21 AB [id number]) Physical Therapy Current Condition Current Condition Evaluation Date 08/12/18 Treatment Diagnosis R supcapital/ femoral neck fx s/p pecutaneous screw fixation ; diff. in walk Onset Date 08/11/18 Weight Bearing Status Weight Bearing Status Weight Bear as Tolerated M3 PT-IP Subjective Start: 08/11/18 13:29 Freq: NEEDED Status: Active Protocol: Document 08/15/18 10:25 GGD (Rec: 08/15/18 10:54 GGD [id number]) Subjective Physical Therapy Visit Type Type Patient Refusal Notes Pt refused, she states that she just finishing shower and will D/C today. She will like to rest before D/C. Frequency of Treatment Frequency Of Treatment Twice a Day Treatment Plan Other Recommendations and Next Treatment ambulation, stair mobility. Focus Recommendations To Nursing Amount of Assist Needed 1 Person Assist Discharge Recommendations PT Discharge Recommendations Home with Assistance Home Health
--- NOTE | 2018-08-15 11:04 | PM.PNPO.1 ---
Subjective Date Patient Seen: 08/15/18 Time Patient Seen: 11:04 Interval history: Hospital day 5, postop day 4 following right hip fracture with percutaneous pinning. Patient progressed well over last few days. She was discharged home yesterday. Apparently her son was not able to get his car started so he was not able to come and get her. She has remained stable overnight. Has been cleared for discharge home by hospitalist today. Exam Vital Signs (past 8 hours): - 08/15/18 07:40 08/15/18 10:00 Temperature 97.7 F Pulse Rate 68 Respiratory Rate 18 Blood Pressure 172/92 H Pulse Oximetry 94 93 Oxygen Delivery Method Room Air Oxygen Flow Rate 0 Narrative Exam Narrative: Patient alert, oriented no acute distress lying in bed. Right leg. Dressing to right hip incision is coming loose. No signs of infection or inflammation. No calf pain or swelling. Left leg. Dog bite to left thigh by appear to be healing without signs of infection or inflammation. There is areas of ecchymosis. Some tenderness on palpation to the lateral thigh but patient able to move her leg freely. Objective Labs Result Diagrams: 08/15/18 05:41 08/15/18 05:41 Labs: Laboratory Results - last 24 hr 08/11/18 08/15/18 08/15/18 12:35 05:41 05:41 WBC 6.6 RBC 4.99 Hgb 14.6 Hct 43.4 MCV 86.9 MCH 29.3 MCHC 33.7 RDW 14.1 Plt Count 222 Neut % (Auto) 82.6 H Lymph % (Auto) 9.1 L Bonner % (Auto) 7.7 Eos % (Auto) 0.3 L Baso % (Auto) 0.3 Neut # (Auto) 5400 Sodium 143 139 Potassium 4.8 4.2 Chloride 99 100 Carbon Dioxide 32 29 BUN 19 H 23 H Creatinine 0.70 0.70 Estimated GFR > 60.0 > 60.0 BUN/Creatinine Ratio 27.1 H 32.9 H Glucose 111 H 125 H Calcium 10.8 H 9.9 Phosphorus 3.3 Magnesium 1.8 Total Bilirubin 0.4 AST 27 ALT 19 Alkaline Phosphatase 66 Total Protein 6.5 Albumin 3.7 Globulin 2.8 Albumin/Globulin Ratio 1.3 Assessment & Plan Post-op Postoperative Procedures Operation Date: 08/11/18 16:00 Actual Procedures Side Surgeon p ORIF Hip/Cannulated Screws Right Arun Melchor MD Plan: Patient will be discharged home by hospitalist. Will need postop visit at [facility] Orthoped[facility] office and 14 days postop. Quality VTE Deep Vein Thrombosis/Pulmonary Embolism Present on Admission: No
--- NOTE | 2018-08-15 11:22 | PM.PN.1 ---
Subjective Date Patient Seen: 08/15/18 Time Patient Seen: 11:23 Interval history: PATIENT DOING OK DC HELD OVERNIGHT DUE TO PERSONAL ISSUES PER NURSING NO OTHER SIGNIFICANT ISSUES OVER LAST 24 HRS Exam Vital Signs (past 8 hours): - 08/15/18 07:40 08/15/18 10:00 Temperature 97.7 F Pulse Rate 68 Respiratory Rate 18 Blood Pressure 172/92 H Pulse Oximetry 94 93 Oxygen Delivery Method Room Air Oxygen Flow Rate 0 Narrative Exam Narrative: NO ACUTE DISTRESS. PATIENT IS ALERT ORIENTED X 2. VITAL SIGNS STABLE HEAD ATRAUMATIC NORMOCEPHALIC NECK : SUPPLE WITHOUT ADENOPATHY NO CAROTID BRUITS EYE: EOMI, PERRLA, NORMAL CONJUNCTIVA; NO JAUNDICE CHEST: REGULAR RATE. NO RUBS. PMI IS NON DISPLACED. NO MURMURS; NORMAL S1-S2 PULMONARY: DECREASED BS OVER THE BASES. MILD BIBASILAR CRACKLES NOTED; NO INCREASED DULLNESS TO PERCUSSION ABDOMEN: SOFT. NON TENDER. NON DISTENDED. BOWEL SOUNDS ARE PRESENT IN ALL 4 QUADRANTS. NO MASS. EXTREMITIES: NO EDEMA.. NO CYANOSIS CLUBBING NOTED. NEURO: CRANIAL NERVES 2-12 GROSSLY INTACT. NO FOCAL NEUROLOGICAL DEFICIT NOTED. MSK: DISCOMFORT WITH ACTIVE AND PASSIVE ROM ON THE RT LOWER EXT; NO JOINT EFFUSION. SKIN: NORMAL FOR ETHNICITY; NO ECCHYMOSIS. NO LESION. GOOD TURGOR.; NO RASHES : NORMAL EXTERNAL GENITALIA. PSYCH : APPROPRIATE MOOD AND AFFECT. ALERT AWAKE ORIENTED X3 Objective Labs Result Diagrams: 08/15/18 05:41 08/15/18 05:41 Labs: Laboratory Results - last 24 hr 08/11/18 08/15/18 08/15/18 12:35 05:41 05:41 WBC 6.6 RBC 4.99 Hgb 14.6 Hct 43.4 MCV 86.9 MCH 29.3 MCHC 33.7 RDW 14.1 Plt Count 222 Neut % (Auto) 82.6 H Lymph % (Auto) 9.1 L [place] % (Auto) 7.7 Eos % (Auto) 0.3 L Baso % (Auto) 0.3 Neut # (Auto) 5400 Sodium 143 139 Potassium 4.8 4.2 Chloride 99 100 Carbon Dioxide 32 29 BUN 19 H 23 H Creatinine 0.70 0.70 Estimated GFR > 60.0 > 60.0 BUN/Creatinine Ratio 27.1 H 32.9 H Glucose 111 H 125 H Calcium 10.8 H 9.9 Phosphorus 3.3 Magnesium 1.8 Total Bilirubin 0.4 AST 27 ALT 19 Alkaline Phosphatase 66 Total Protein 6.5 Albumin 3.7 Globulin 2.8 Albumin/Globulin Ratio 1.3 Assessment & Plan Plan: Assessment/Plan Narrative: IMPRESSION AND PLAN ACUTE FALL WITH TRAUMA; ACCIDENTAL; GROUND LEVEL ; FALL PRECAUTIONS; PT/OT IN HOUSE AND AFTER DC WITH S/P HIP FX REPAIR WITH SCREW INSERTIONS; REMAINS IMPROVED CLINICALLY; NO S/S OF ACUTE COMPLICATIONS; SURG TEAM ASSISTANCE IN THIS CASE IS GREATLY APPRECIATED; FOLLOW CLOSELY ; DC HOME WITH TODAY LEUKOCYTOSIS; RESOLVED; WAS LIKELY ACUTE REACTANT TO ACUTE FX AND SURG PROCEDURE; DEMENTIA; APPEARS AT BASELINE; RE-ORIENT INDICATED; KEEP LIGHTS ON AT ALL TIMES; WATCH FOR HOSPITAL PSYCHOSIS; PRN MEDS INDICATED POSS OSTEOPOROSIS ; VIT D AND CA WHILE IN HOUSE; BONE SCAN AND OTHER MEDS OUTPT WHEN INDICATED POSS ACUTE ON CHRONIC RESP FAILURE; DEC OXY SAT REPORTED ONCE AGAIN; LIKELY DUE TO COPD EXACERBATION; OXYGEN THERAPY TO MAINTAIN PROPER SAT; TELEMETRY; INCENTIVE SPIROMETRY; OOB/ IN CHAIR TID; CONT PULSE OX; POSS ACUTE COPD EXACERB; ON STEROIDS; ON AZITHRO; RT CONSULTED; DUONEBS ORDERED WELL; EVALUATE FOR HOME OXYGEN; SERIAL CXR AND ABG TO FOLLOW INDICATED; CONT PULSE OX WHILE I HOUSE LUNG MASS ; JUAN; POSS CARCINOMA; NO BX RECOMMENDED AT THIS TIME NO TREATMENT WILL BE SOUGHT AFTER PER POA/PATIENT; FURTHER WORK UP COULD BE DONE OP IF INDICATED AAA; 4.9 PER CTA; OUTPATIENT REFERRAL TO VASCULAR SURG [place] TO AAA AND THORACIC AORTA WALL; NO ANTICOAG RECOMM MCC; FOLLOW CLINICALLY SEVERE VASCULOPATHY; RENAL AND ILIAC ARTERIES DISEASE REPORTED; REFERED TO VASCULAR SURGERY FOR IMPUT/RECOMM; 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
--- NOTE | 2018-08-15 12:02 | PC.NURSE ---
Addendum entered by Lyn Gill R.N. 08/15/18 13:01: APS report ID# [id number] Original Note: Discharge Son arrived in a w/c himself from downstairs with a bag of clothes, opened pt's door and said here are your fucking clothes. d/c instructions provided to pt and her son. Notified to make f/u apts with ortho and PCP which pt does not have. Son states he has gone to [facility]. Called and made apt for pt on 08/19 at 0930. Son requested apt for Ortho be made on same day so called [facility] Son and pt aware of both apts. Release of records signed by pt for records to be sent to [facility] prior to apt. Pt no longer has a PIV. Dressing changed this AM per PA order. Pt left with Rx. Reminded pt about apts after d/c, she laughs and states garner, as if I'm allowed to go. APS called.
== END 2018-08-15 12:00 | disposition home health service (06) | DRG 480 ==
LOC: ED 12:22 → AC 12:36
PROVIDERS: Admitting Provider Hospitalist; Emergency Provider Emergency Medicine; Visit Provider Orthopaedic Surgery
PROC: 0QH604Z Insertion of Internal Fixation Device into Right Upper Femur, Open Approach (ICD-10-PCS; principal; 2018-08-11 16:00)
DX: S72.011A Unspecified intracapsular fracture of right femur, initial encounter for closed fracture (principal); J96.20 Acute and chronic respiratory failure, unspecified whether with hypoxia or hypercapnia; I71.02 Dissection of abdominal aorta; I74.09 Other arterial embolism and thrombosis of abdominal aorta; C34.92 Malignant neoplasm of unspecified part of left bronchus or lung; C34.91 Malignant neoplasm of unspecified part of right bronchus or lung; J44.1 Chronic obstructive pulmonary disease with (acute) exacerbation; F03.90 Unspecified dementia, unspecified severity, without behavioral disturbance, psychotic disturbance, mood disturbance, and anxiety; W18.30XA Fall on same level, unspecified, initial encounter; S71.152A Open bite, left thigh, initial encounter; W54.0XXA Bitten by dog, initial encounter; Z87.891 Personal history of nicotine dependence; I71.2 Thoracic aortic aneurysm, without rupture
CPT/HCPCS: 36415; 36591; 51701; 51705; 71045; 71250; 71275; 73502; 74174; 76000; 80048; 80053; 81001; 83735; 84100; 85014; 85018; 85025; 90471; 94640; 94760; 96374; 96375; 97116; 97161; 97165; 97530; 99284; 90715; J1170; J1650; J1940; J2405; J2704; J2920; J3010; J7613; Q9967